=== PATIENT | male | born 1995 | race African-American/Black ===

== ENCOUNTER 2020-09-18 15:02 | Emergency (ER) | payer OTHER ==
--- OUTSIDE RECORDS SUMMARY | 2020-09-18 15:04 | XMS REPORT | Continuity of Care Document ---
:1995 Author Organization [facility] t Address [address] [place] [address] Care Team Providers Name Role Phone Evon MARIE S Attending Clinician Problems This patient has no known problems. Allergies, Adverse Reactions, Alerts This patient has no known allergies or adverse reactions. Medications This patient has no known medications. Procedures This patient has no known procedures. Encounters Start End Encounter Admission Attending Care Care Encounter Source Date/Time Date/Time Type Type Clinicians Facility Department ID 2019-04-14 2019-04-14 Emergency REKHA Barnard [id number] 01:36:12 03:19:00 Kyree Phan [id number] [place] [id number] [place] [id number] Results This patient has no known results.
--- NOTE | 2020-09-18 17:19 | ER ---
Nurse's Notes [facility] Name: Henry Collins Age: 25 yrs Sex: Male : 1995 Arrival Date: 09/18/2020 Time: 15:03 Bed 23 Private MD: Diagnosis: Unspecified sexually transmitted disease Presentation: 09/18 16:00 Chief complaint: Patient states: This morning woke up, penile discharge yellowish with ca1 odor. Reports burning with urination and suprapubic pain. Denies fever. Coronavirus screen: Client denies travel out of the [place] in the last 14 days. At this time, the client does not indicate any symptoms associated with coronavirus-19. Ebola Screen: Patient negative for fever greater than or equal to 101.5 degrees Fahrenheit, and additional compatible Ebola Virus Disease symptoms Patient denies exposure to infectious person. Patient denies travel to an Ebola-affected area in the 21 days before illness onset. No symptoms or risks identified at this time. Initial Sepsis Screen: Does the patient meet any 2 criteria? No. Patient's initial sepsis screen is negative. Does the patient have a suspected source of infection? No. Patient's initial sepsis screen is negative. Risk Assessment: Do you want to hurt yourself or someone else? Patient reports no desire to harm self or others. Onset of symptoms was September 18, 2020. 16:00 Method Of Arrival: Ambulatory ca1 16:00 Acuity: NICHOLE 4 ca1 Historical: - Allergies: 16:05 No Known Allergies; ca1 - Home Meds: 16:05 None [Active]; ca1 - PMHx: 16:05 Seizures; ca1 - PSHx: 16:05 None; ca1 - Immunization history:: Flu vaccine is not up to date. - Social history:: Smoking status: Patient/guardian denies using tobacco, the patient reports quitting approximately 11 years ago. Screenin:41 Abuse screen: Denies threats or abuse. Nutritional screening: No deficits noted. jd3 Tuberculosis screening: No symptoms or risk factors identified. Fall Risk Ambulatory Aid- None/Bed Rest/Nurse Assist (0 pts). Gait- Normal/Bed Rest/Wheelchair (0 pts) Mental Status- Oriented to own ability (0 pts). Total Kevin Fall Scale indicates No Risk (0-24 pts). Assessment: 17:40 General: Appears in no apparent distress. uncomfortable, Behavior is calm, cooperative, jd3 appropriate for age. Pain: Complains of pain in groin Quality of pain is described as burning. Neuro: Level of Consciousness is awake, alert, obeys commands, Oriented to person, place, time, situation. Cardiovascular: Capillary refill < 3 seconds Patient's skin is warm and dry. Respiratory: Airway is patent Respiratory effort is even, unlabored, Respiratory pattern is regular, symmetrical, Denies cough, shortness of breath. GI: No signs and/or symptoms were reported involving the gastrointestinal system. : Reports discharge, from penis that is yellow. EENT: No signs and/or symptoms were reported regarding the EENT system. Derm: Skin is healthy with good turgor, Skin is pink, warm \T\ dry. Musculoskeletal: Circulation, motion, and sensation intact. Range of motion: intact in all extremities. 18:02 Reassessment: Patient appears in no apparent distress at this time. Patient and/or jd3 family updated on plan of care and expected duration. Pain level reassessed. Patient is alert, oriented x 3, equal unlabored respirations, skin warm/dry/pink. Vital Signs: 16:00 BP 111 / 83; Pulse 83; Resp 16 S; Temp 99.1(TE); Pulse Ox 100% on R/A; Weight 81.65 kg ca1 (R); Height 6 ft. 1 in. (185.42 cm) (R); Pain 0/10; 18:02 BP 110 / 78; Pulse 84; Resp 15 S; Pulse Ox 100% on R/A; jd3 16:00 Body Mass Index 23.75 (81.65 kg, 185.42 cm) ca1 ED Course: 15:03 Patient arrived in ED. as 15:11 Hitesh Del Valle PA is PHCP. cp 15:11 Henry Slater MD is Attending Physician. cp 16:04 Triage completed. ca1 16:05 Arm band placed on right wrist. ca1 16:45 Juvenal Monson, ADDY is Primary Nurse. jd3 17:40 GC (GONORR/CHLAMYDIA) Probe Sent. jd3 17:41 Patient has correct armband on for positive identification. Bed in low position. Call jd3 light in reach. Side rails up X 1. Adult w/ patient. Pulse ox on. NIBP on. 17:41 No provider procedures requiring assistance completed. Patient did not have IV access jd3 during this emergency room visit. Administered Medications: 17:39 Drug: Rocephin (cefTRIAXone) 250 mg Route: IM; Site: right deltoid; jd3 18:03 Follow up: Response: No adverse reaction jd3 17:39 Drug: Zithromax 1 grams Route: PO; jd3 18:03 Follow up: Response: No adverse reaction jd3 Outcome: 17:19 Discharge ordered by . darron 18:02 Discharged to home ambulatory. jd3 18:02 Condition: stable 18:02 Discharge instructions given to patient, Instructed on discharge instructions, follow up and referral plans. Demonstrated understanding of instructions, follow-up care. 18:03 Patient left the ED. jd3 Signatures: Rukhsana Adams Corey, PA PA cp Davies, Jonathon, RN RN jSamantha Houston RN RN ca1
--- NOTE | 2020-09-18 17:19 | EDPHYS ---
Physician Documentation [facility] Name: Henry Collins Age: 25 yrs Sex: Male : 1995 Arrival Date: 09/18/2020 Time: 15:03 Bed 23 Private MD: ED Physician Henry Slater HPI: 09/18 16:45 This 25 yrs old Black Male presents to ER via Ambulatory with complaints of STD cp Exposure. 16:45 The patient presents with urinary symptoms, dysuria, penile discharge. cp 16:45 Onset: The symptoms/episode began/occurred this morning. Associated signs and symptoms: cp Pertinent negatives: abdominal pain, fever, hematuria, nausea, vomiting, testicular pain. Patient reports having unprotected intercourse with new partner recently. Historical: - Allergies: 16:05 No Known Allergies; ca1 - Home Meds: 16:05 None [Active]; ca1 - PMHx: 16:05 Seizures; ca1 - PSHx: 16:05 None; ca1 - Immunization history:: Flu vaccine is not up to date. - Social history:: Smoking status: Patient/guardian denies using tobacco, the patient reports quitting approximately 11 years ago. ROS: 16:50 : Positive for burning with urination, penile discharge, Negative for testicular pain cp 16:50 Eyes: Negative for injury, pain, redness, and discharge. cp 16:50 Constitutional: Negative for fever. 16:50 Cardiovascular: Negative for chest pain. 16:50 Respiratory: Negative for cough, shortness of breath. 16:50 Abdomen/GI: Negative for abdominal pain, nausea, vomiting, and diarrhea. 16:50 Skin: Negative for rash. 16:50 All other systems are negative. Exam: 17:00 Constitutional: The patient appears in no acute distress, alert, awake, comfortable, cp non-toxic, well developed, well nourished. 17:00 Head/Face: Normocephalic, atraumatic. cp 17:00 Cardiovascular: Rate: normal. 17:00 Respiratory: the patient does not display signs of respiratory distress, Respirations: normal, no use of accessory muscles, labored breathing, is not present. 17:00 Abdomen/GI: Inspection: abdomen appears normal, Palpation: abdomen is soft and non-tender, in all quadrants, voluntary guarding, is not appreciated, involuntary guarding, is not appreciated. 17:00 Back: pain, is absent, ROM is normal. 17:00 : Male external genitalia: Circumcision noted. swelling: is not appreciated, tenderness, is not appreciated, Sexual behavior: the patient is sexually active, and reports multiple partners. 17:00 Skin: no rash present. on the pelvis. Vital Signs: 16:00 BP 111 / 83; Pulse 83; Resp 16 S; Temp 99.1(TE); Pulse Ox 100% on R/A; Weight 81.65 kg ca1 (R); Height 6 ft. 1 in. (185.42 cm) (R); Pain 0/10; 18:02 BP 110 / 78; Pulse 84; Resp 15 S; Pulse Ox 100% on R/A; jd3 16:00 Body Mass Index 23.75 (81.65 kg, 185.42 cm) ca1 MDM: 16:25 Patient medically screened. cp 17:15 Differential diagnosis: appendicitis, UTI, prostatitis, urethritis. cp 17:18 Data reviewed: vital signs, nurses notes, and as a result, I will discharge patient. cp 17:18 Counseling: I had a detailed discussion with the patient and/or guardian regarding: the cp historical points, exam findings, and any diagnostic results supporting the discharge/admit diagnosis, to return to the emergency department if symptoms worsen or persist or if there are any questions or concerns that arise at home. 09/18 16:38 Order name: GC (GONORR/CHLAMYDIA) Probe cp Administered Medications: 17:39 Drug: Rocephin (cefTRIAXone) 250 mg Route: IM; Site: right deltoid; jd3 18:03 Follow up: Response: No adverse reaction jd3 17:39 Drug: Zithromax 1 grams Route: PO; jd3 18:03 Follow up: Response: No adverse reaction jd3 Disposition: 09/19 13:11 Co-signature as Attending Physician, Henry Slater MD I agree with the assessment and kdr plan of care. Disposition: 09/18/20 17:19 Discharged to Home. Impression: Unspecified sexually transmitted disease. - Condition is Stable. - Discharge Instructions: Chlamydia, Male, Gonorrhea, Sexually Transmitted Disease. - Medication Reconciliation Form, Thank You Letter, Antibiotic Education, Prescription Opioid Use form. - Follow up: Private Physician; When: 2 - 3 days; Reason: Worsening of condition. - Problem is new. - Symptoms have improved. Signatures: Dispatcher [employer] EDMS Henry Slater MD MD kdr Page, Corey, PA PA cp Davies, Jonathon, RN RN jd3 AcSamantha brothers RN RN ca1 Corrections: (The following items were deleted from the chart) 09/18 18:03 17:19 09/18/2020 17:19 Discharged to Home. Impression: Unspecified sexually transmitted jd3 disease. Condition is Stable. Forms are Medication Reconciliation Form, Thank You Letter, Antibiotic Education, Prescription Opioid Use. Follow up: Private Physician; When: 2 - 3 days; Reason: Worsening of condition. Problem is new. Symptoms have improved. cp
[2020-09-18] MEDS ORDERED: AZITHROMYCIN 250 MG TAB ONE (17:40)
[2020-09-18] MEDS ORDERED: CEFTRIAXONE 1000 MG/VIAL ONE (17:41)
[2020-09-18 18:15] VITALS: TEMP 99.1; O2SAT 100
[2020-09-18 18:17] VITALS: BP 110/78
[2020-09-22 12:38] LABS: C.trachomatis RNA,TMA Not Detected (Not Detected)
== END 2020-09-18 18:03 | disposition home or self-care (01) ==
LOC: ER 15:02
DX: A64 Unspecified sexually transmitted disease (principal)
CPT/HCPCS: 87490; 87590; 96372; 99283

== ENCOUNTER 2021-03-22 18:52 | Emergency (ER) | payer OTHER ==
--- OUTSIDE RECORDS SUMMARY | 2021-03-22 18:54 | XMS REPORT | Continuity of Care Document ---
:1995 Author Organization [facility] t Address [address] [place] [address] Care Team Providers Name Role Phone Charbel MARIE Attending Clinician Doctor Unassigned, Name Attending Clinician Unavailable Evon MARIE, S Attending Clinician Problems This patient has no known problems. Allergies, Adverse Reactions, Alerts This patient has no known allergies or adverse reactions. Medications This patient has no known medications. Procedures This patient has no known procedures. Encounters Start End Encounter Admission Attending Care Care Encounter Source Date/Time Date/Time Type Type Clinicians Facility Department ID 2021-01-08 2021-01-08 [email or web address] [id number] 08:33:00 09:14:00 Eduardo Phan [id number] [place] [id number] [place] [id number] 2021-01-08 2021-01-08 Orders Doctor SLIM [id number] 00:00:00 00:00:00 Only UnassignedJAVIER [id number] [place] [facility] [id number] 2019-04-14 2019-04-14 Emergency Evon [facility] [id number] 01:36:12 03:19:00 Kyree Phan [id number] [place] [id number] [place] [address] [id number] Results This patient has no known results.
--- NOTE | 2021-03-22 22:06 | ER ---
Nurse's Notes [facility] Name: Henry Collins Age: 25 yrs Sex: Male : 1995 Arrival Date: 03/22/2021 Time: 19:09 Bed 26 Private MD: Diagnosis: Dental caries, unspecified Presentation: 03/22 19:18 Chief complaint: Patient states: Left upper and lower tooth pain for 1 day. No fever. ll1 Coronavirus screen: Client denies travel out of the [place] in the last 14 days. At this time, the client does not indicate any symptoms associated with coronavirus-19. Ebola Screen: Patient denies travel to an Ebola-affected area in the 21 days before illness onset. Initial Sepsis Screen: Does the patient meet any 2 criteria? No. Patient's initial sepsis screen is negative. Does the patient have a suspected source of infection? No. Patient's initial sepsis screen is negative. Risk Assessment: Do you want to hurt yourself or someone else? Patient reports no desire to harm self or others. Onset of symptoms was March 22, 2021. 19:18 Method Of Arrival: Ambulatory [facility] 19:18 Acuity: NICHOLE 4 ll1 Triage Assessment: 21:22 General: Denies fever, feeling ill, fatigue, chills. EENT: Reports tooth pain . zb Historical: - Allergies: 19:20 No Known Allergies; ll1 - PMHx: 19:20 Seizures; ll1 - PSHx: 19:20 None; ll1 - Immunization history:: Client reports receiving the 1st dose of the Covid vaccine, Flu vaccine is up to date. - Social history:: Smoking status: Patient reports the use of cigarette tobacco products, smokes one pack cigarettes per day. Screenin:47 Abuse screen: Denies threats or abuse. Denies injuries from another. Nutritional zb screening: No deficits noted. Tuberculosis screening: No symptoms or risk factors identified. Fall Risk None identified. Assessment: 21:21 General: Appears in no apparent distress. Behavior is calm. Pain: Complains of pain in zb lower left third molar and lower left second molar Pain currently is 5 out of 10 on a pain scale. Quality of pain is described as aching, Pain began 1 day ago. Neuro: Level of Consciousness is awake, alert. Cardiovascular: Patient's skin is warm and dry. EENT: Throat is clear. Derm: Skin is intact, is healthy with good turgor. Musculoskeletal: Range of motion: intact in all extremities. 22:18 Reassessment: Patient appears in no apparent distress at this time. Patient and/or zb family updated on plan of care and expected duration. Pain level reassessed. Patient is alert, oriented x 3, equal unlabored respirations, skin warm/dry/pink. Vital Signs: 19:18 BP 125 / 73; Pulse 57; Resp 17; Temp 97.6; Pulse Ox 100% ; Weight 77.11 kg; Height 6 ll1 ft. 1 in. (185.42 cm); Pain 7/10; 22:18 BP 130 / 80; Pulse 56; Resp 16; Pulse Ox 100% ; zb 19:18 Body Mass Index 22.43 (77.11 kg, 185.42 cm) ll1 ED Course: 19:09 Patient arrived in ED. ds1 19:20 Triage completed. ll1 19:20 Arm band placed on. 1 20:13 Kaden Steele PA is PHCP. anurag 20:13 Hernan Skinner MD is Attending Physician. len 20:27 Carina Juraez RN is Primary Nurse. zb 21:22 Patient has correct armband on for positive identification. Pulse ox on. NIBP on. Door zb closed. Noise minimized. 22:18 No provider procedures requiring assistance completed. Patient did not have IV access zb during this emergency room visit. Administered Medications: 22:18 Drug: Ketorolac 30 mg Route: IM; Site: right deltoid; zb Outcome: 22:06 Discharge ordered by . anurag 22:18 Discharged to home ambulatory. zb 22:18 Condition: stable 22:18 Discharge instructions given to patient, Instructed on discharge instructions, follow up and referral plans. medication usage, Demonstrated understanding of instructions, follow-up care, medications, Prescriptions given X 1. 22:28 Patient left the ED. zb Signatures: Kaden Steele PA PA jmm Sanford, Demi ds1 Stanley Reis RN RN 1 Carina Juarez RN RN zb
--- NOTE | 2021-03-22 22:07 | EDPHYS ---
Physician Documentation [facility] Name: Henry Collins Age: 25 yrs Sex: Male : 1995 Arrival Date: 03/22/2021 Time: 19:09 Bed 26 Private MD: ED Physician Hernan Skinner HPI: 03/22 22:02 This 25 yrs old Black Male presents to ER via Ambulatory with complaints of Toothache. jmm 22:02 The patient presents with pain. Onset: The symptoms/episode began/occurred gradually, 1 jmm day(s) ago. Modifying factors: The symptoms are alleviated by nothing, the symptoms are aggravated by nothing. Associated signs and symptoms: Pertinent positives: pain, Pertinent negatives: fever. This is a 25 year old male with a history of epilepsy that presents to the ED with complaints of dental pain. Patient states the pain radiates up his jaw to his left ear. Denies fever, vomiting. Patient has had similar episodes of pain in the past. . Historical: - Allergies: 19:20 No Known Allergies; ll1 - PMHx: 19:20 Seizures; ll1 - PSHx: 19:20 None; ll1 - Immunization history:: Client reports receiving the 1st dose of the Covid vaccine, Flu vaccine is up to date. - Social history:: Smoking status: Patient reports the use of cigarette tobacco products, smokes one pack cigarettes per day. ROS: 22:02 Constitutional: Negative for fever, chills, and weight loss. jmm 22:02 ENT: Positive for dental pain. 22:02 All other systems are negative. Exam: 22:02 Constitutional: This is a well developed, well nourished patient who is awake, alert, jmm and in no acute distress. Head/Face: atraumatic. Eyes: EOMI, no conjunctival erythema appreciated 22:02 Neck: Trachea midline, Supple Chest/axilla: Normal chest wall appearance and motion. Cardiovascular: Regular rate and rhythm. No edema appreciated Respiratory: Normal respirations, no respiratory distress appreciated Abdomen/GI: Non distended, soft Back: Normal ROM Skin: General appearance color normal MS/ Extremity: Moves all extremities, no obvious deformities appreciated, no edema noted to the lower extremities Neuro: Awake and alert, normal gait Psych: Behavior is normal, Mood is normal, Patient is cooperative and pleasant 22:02 ENT: Dental exam: dental caries, that is moderate, specifically in the lower left second molar (#18), lower left first molar (#19) and lower left second bicuspid (#20). Vital Signs: 19:18 BP 125 / 73; Pulse 57; Resp 17; Temp 97.6; Pulse Ox 100% ; Weight 77.11 kg; Height 6 ll1 ft. 1 in. (185.42 cm); Pain 7/10; 22:18 BP 130 / 80; Pulse 56; Resp 16; Pulse Ox 100% ; zb 19:18 Body Mass Index 22.43 (77.11 kg, 185.42 cm) ll1 MDM: 22:01 Patient medically screened. [facility] 22:04 Data reviewed: vital signs, nurses notes. Counseling: I had a detailed discussion with len the patient and/or guardian regarding: the historical points, exam findings, and any diagnostic results supporting the discharge/admit diagnosis, the need for outpatient follow up, to return to the emergency department if symptoms worsen or persist or if there are any questions or concerns that arise at home. ED course: Patient is alert and non toxic in appearance in the ED. I do not suspect ludwigs. Patient advised to follow up with pcp/dentist or otherwise given strict return precautions. patient understood and agrees with the plan of care. . Administered Medications: 22:18 Drug: Ketorolac 30 mg Route: IM; Site: right deltoid; zb Disposition: 23:06 Co-signature as Attending Physician, Hernan Skinner MD. fernanda Disposition Summary: 03/22/21 22:06 Discharge Ordered Location: Home [facility] Condition: Stable [facility] Diagnosis - Dental caries, unspecified [facility] Followup: [facility] - With: Private Physician - When: 2 - 3 days - Reason: Recheck today's complaints, Continuance of care, Re-evaluation by your physician Discharge Instructions: - Discharge Summary Sheet [facility] - Dental Caries, Adult [facility] Forms: - Medication Reconciliation Form [facility] - Thank You Letter [facility] - Antibiotic Education [facility] - Prescription Opioid Use [facility] Prescriptions: - Amoxicillin 875 mg Oral Tablet - take 1 tablet by ORAL route every 12 hours for 10 days; 20 tablet; Refills: 0, [facility] Product Selection Permitted Signatures: Hernan Skinner MD MD pkKaden Piña PA PA jmm Lewis, Lynsay, RN RN ll1 Carina Juarez, RN RN zb
[2021-03-22 22:34] VITALS: TEMP 97.6; O2SAT 100
[2021-03-22 22:36] VITALS: BP 130/80
[2021-03-22] MEDS ORDERED: KETOROLAC 30 MG/ML INJ ONE (22:36)
== END 2021-03-22 22:28 | disposition home or self-care (01) ==
LOC: ER 18:52
DX: K02.9 Dental caries, unspecified (principal); F17.210 Nicotine dependence, cigarettes, uncomplicated
CPT/HCPCS: 96372; 99283

== ENCOUNTER 2021-03-31 03:05 | Emergency (ER) | payer OTHER ==
--- OUTSIDE RECORDS SUMMARY | 2021-03-31 03:08 | XMS REPORT | Continuity of Care Document ---
:[address] [facility] t Address [address] [place] [address] Care Team Providers Name Role Phone Charbel MARIE Attending Clinician Doctor Unassigned, Name Attending Clinician Unavailable Evon MARIE S Attending Clinician Problems This patient has no known problems. Allergies, Adverse Reactions, Alerts This patient has no known allergies or adverse reactions. Medications This patient has no known medications. Procedures This patient has no known procedures. Encounters Start End Encounter Admission Attending Care Care Encounter Source Date/Time Date/Time Type Type Clinicians Facility Department ID 2021-01-08 2021-01-08 Emergency [place] [id number] 08:33:00 09:14:00 Eduardo Phan [id number] [place] [id number] [place] [id number] 2021-01-08 2021-01-08 Orders Doctor [place]S [id number] 00:00:00 00:00:00 Only UnassignedJAVIER [id number] [place]ish [place] [facility] [id number] 2019-04-14 2019-04-14 Emergency Evon [id number] 01:36:12 03:19:00 Kyree Phan [id number] [place] [id number] [place] [id number] Results This patient has no known results.
[2021-03-31] MEDS ORDERED: AMOX/K CLAV 875 MG TAB ONE (04:32)
[2021-03-31] MEDS ORDERED: IBUPROFEN 400 MG TAB ONE (04:32)
--- NOTE | 2021-03-31 17:53 | EDPHYS ---
Physician Documentation [facility] Name: Henry Collins Age: 25 yrs Sex: Male : 1995 Arrival Date: 03/31/2021 Time: 03:09 Bed 12 Private MD: ED Physician Hitesh Grijalva HPI: 03/31 03:54 This 25 yrs old Black Male presents to ER via Ambulatory with complaints of Toothache. [facility] 03:54 The patient presents with pain, swelling. The problem is located in the lower left jena third molar and lower left second molar. Onset: The symptoms/episode began/occurred 3 day(s) ago. Duration: The symptoms are continuous. Modifying factors: The symptoms are alleviated by prescription meds, the symptoms are aggravated by air, chewing. Associated signs and symptoms: The patient has no apparent associated signs or symptoms. Severity of symptoms: At their worst the symptoms were mild, moderate, in the emergency department the symptoms are unchanged. The patient has not experienced similar symptoms in the past. Historical: - Allergies: 03:22 No Known Allergies; em - PMHx: 03:22 Seizures; em - PSHx: 03:22 None; em - Immunization history:: Adult Immunizations up to date. - Social history:: Smoking status: Patient reports the use of cigarette tobacco products, smokes one-half pack cigarettes per day. ROS: 03:55 Constitutional: Negative for fever, chills, and weight loss, Eyes: Negative for injury, jena pain, redness, and discharge, ENT: Negative for injury, pain, and discharge, Neck: Negative for injury, pain, and swelling, Cardiovascular: Negative for chest pain, palpitations, and edema, Respiratory: Negative for shortness of breath, cough, wheezing, and pleuritic chest pain, Abdomen/GI: Negative for abdominal pain, nausea, vomiting, diarrhea, and constipation, Back: Negative for injury and pain, : Negative for injury, bleeding, discharge, and swelling, MS/Extremity: Negative for injury and deformity, Skin: Negative for injury, rash, and discoloration, Neuro: Negative for headache, weakness, numbness, tingling, and seizure, Psych: Negative for depression, anxiety, suicide ideation, homicidal ideation, and hallucinations, Allergy/Immunology: Negative for hives, rash, and allergies, Endocrine: Negative for neck swelling, polydipsia, polyuria, polyphagia, and marked weight changes, Hematologic/Lymphatic: Negative for swollen nodes, abnormal bleeding, and unusual bruising. Exam: 03:55 Constitutional: This is a well developed, well nourished patient who is awake, alert, jena and in no acute distress. Head/Face: Normocephalic, atraumatic. Eyes: Pupils equal round and reactive to light, extra-ocular motions intact. Lids and lashes normal. Conjunctiva and sclera are non-icteric and not injected. Cornea within normal limits. Periorbital areas with no swelling, redness, or edema. Neck: Trachea midline, no thyromegaly or masses palpated, and no cervical lymphadenopathy. Supple, full range of motion without nuchal rigidity, or vertebral point tenderness. No Meningismus. Chest/axilla: Normal chest wall appearance and motion. Nontender with no deformity. No lesions are appreciated. Cardiovascular: Regular rate and rhythm with a normal S1 and S2. No gallops, murmurs, or rubs. Normal PMI, no JVD. No pulse deficits. Respiratory: Lungs have equal breath sounds bilaterally, clear to auscultation and percussion. No rales, rhonchi or wheezes noted. No increased work of breathing, no retractions or nasal flaring. Abdomen/GI: Soft, non-tender, with normal bowel sounds. No distension or tympany. No guarding or rebound. No evidence of tenderness throughout. Back: No spinal tenderness. No costovertebral tenderness. Full range of motion. Male : Normal genitalia with no discharge or lesions. Skin: Warm, dry with normal turgor. Normal color with no rashes, no lesions, and no evidence of cellulitis. 03:55 ENT: Mouth: Gums: reddened, swollen, on the lower left third molar and lower left second molar, Tongue: is normal, abscess, is not appreciated, drooling, is not appreciated, Dental exam: dental caries, that is mild, specifically in the lower left third molar (#17) and lower left second molar (#18), gum swelling, that is mild, specifically in the lower left third molar (#17) and lower left second molar (#18), malocclusion, is not appreciated, missing teeth, not appreciated, Voice: is normal. Vital Signs: 03:21 BP 146 / 97; Pulse 67; Resp 18; Temp 98.5; Pulse Ox 99% on R/A; Weight 77.11 kg; Height em 6 ft. 1 in. (185.42 cm); Pain 8/10; 03:21 Body Mass Index 22.43 (77.11 kg, 185.42 cm) em MDM: 03:31 Patient medically screened. jena 03:58 Differential diagnosis: dental caries, gingivitis, dental abscess, pericoronitis. Data jena reviewed: vital signs, nurses notes. Data interpreted: pvc monitor: not applicable for this patient encounter. rate is 67 beats/min, rhythm is regular, Pulse oximetry: on room air is 99 %. Counseling: I had a detailed discussion with the patient and/or guardian regarding: the historical points, exam findings, and any diagnostic results supporting the discharge/admit diagnosis, the need for outpatient follow up, for definitive care, a dentist, an oral maxilofacial specialist. Administered Medications: 04:14 Drug: Motrin (ibuprofen) 600 mg Route: PO; em 04:16 Follow up: Response: Medication administered at discharge. em 04:14 Drug: Amoxicillin 500 mg Route: PO; em 04:16 Follow up: Response: Medication administered at discharge. em Disposition Summary: 03/31/21 04:00 Discharge Ordered Location: Home jena Problem: new jena Symptoms: have improved jena Condition: Stable jena Diagnosis - Dental caries, unspecified - pain jena Followup: jena - With: Private Physician - When: 1 - 2 days - Reason: Recheck today's complaints, Continuance of care, Re-evaluation by your physician Followup: jena - With: Marc Sorto DDS - When: 2 - 3 days - Reason: Recheck today's complaints, Continuance of care, Re-evaluation by your physician Discharge Instructions: - Discharge Summary Sheet jena - Dental Caries, Adult jena - Dental Pain jena - Dental Pain, Iodg[place]up-Etge jena - Diet and Dental Disease jena Forms: - Medication Reconciliation Form jena - Thank You Letter jena - Antibiotic Education jena - Prescription Opioid Use jena Prescriptions: - Amoxicillin 500 mg Oral Capsule - take 1 capsule by ORAL route every 8 hours for 10 days; 30 tablet; Refills: 0, jena Product Selection Permitted - Ibuprofen 600 mg Oral Tablet - take 1 tablet by ORAL route every 6 hours As needed take with food; 21 tablet; jena Refills: 0, Product Selection Permitted Signatures: Hitesh Grijalva MD MD cha Munoz, Edgar, RN RN em
--- NOTE | 2021-03-31 17:53 | ER ---
Nurse's Notes [facility] Name: Henry Collnis Age: 25 yrs Sex: Male : 1995 Arrival Date: 03/31/2021 Time: 03:09 Bed 12 Private MD: Diagnosis: Dental caries, unspecified-pain Presentation: 03/31 03:21 Chief complaint: Patient states: bottom left jaw pain for a week, denies fever. em Coronavirus screen: Client denies travel out of the [place] in the last 14 days. Ebola Screen: Patient negative for fever greater than or equal to 101.5 degrees Fahrenheit, and additional compatible Ebola Virus Disease symptoms Patient denies exposure to infectious person. Patient denies travel to an Ebola-affected area in the 21 days before illness onset. Patient positive for the following Ebola Virus Disease associated symptoms:. Initial Sepsis Screen: Does the patient meet any 2 criteria? No. Patient's initial sepsis screen is negative. Does the patient have a suspected source of infection? Yes:. Risk Assessment: Do you want to hurt yourself or someone else? Patient reports no desire to harm self or others. Onset of symptoms was March 31, 2021. 03:21 Method Of Arrival: Ambulatory em 03:21 Acuity: NICHOLE 5 em Historical: - Allergies: 03:22 No Known Allergies; em - PMHx: 03:22 Seizures; em - PSHx: 03:22 None; em - Immunization history:: Adult Immunizations up to date. - Social history:: Smoking status: Patient reports the use of cigarette tobacco products, smokes one-half pack cigarettes per day. Screenin:21 Abuse screen: Denies threats or abuse. Nutritional screening: No deficits noted. em Tuberculosis screening: No symptoms or risk factors identified. Fall Risk None identified. Assessment: 03:21 General: Appears in no apparent distress. uncomfortable, Behavior is calm, cooperative, em Denies fever. Pain: Complains of pain in left jaw Pain currently is 10 out of 10 on a pain scale. Neuro: Level of Consciousness is awake, alert, obeys commands, Oriented to person, place, time, situation. Cardiovascular: Capillary refill < 3 seconds Patient's skin is warm and dry. Respiratory: Airway is patent Respiratory effort is even, unlabored, Respiratory pattern is regular, symmetrical. GI: Abdomen is flat, Patient currently denies nausea, vomiting. EENT: Oral mucosa is moist. Dental caries noted in lower left second molar (#18) and lower left third molar (#17). Derm: Skin is intact, is healthy with good turgor, Skin is pink, warm \T\ dry. Musculoskeletal: Capillary refill < 3 seconds, Range of motion: intact in all extremities. Vital Signs: 03:21 BP 146 / 97; Pulse 67; Resp 18; Temp 98.5; Pulse Ox 99% on R/A; Weight 77.11 kg; Height em 6 ft. 1 in. (185.42 cm); Pain 8/10; 03:21 Body Mass Index 22.43 (77.11 kg, 185.42 cm) em ED Course: 03:09 Patient arrived in ED. es 03:22 Triage completed. em 03:22 Arm band placed on. em 03:31 Hitesh Grijalva MD is Attending Physician. [facility] 04:01 Marc Sorto DDS is Referral Physician. [facility] 04:05 Cali Jackson, RN is Primary Nurse. em 04:17 Patient has correct armband on for positive identification. em 04:17 No provider procedures requiring assistance completed. Patient did not have IV access em during this emergency room visit. Administered Medications: 04:14 Drug: Motrin (ibuprofen) 600 mg Route: PO; em 04:16 Follow up: Response: Medication administered at discharge. em 04:14 Drug: Amoxicillin 500 mg Route: PO; em 04:16 Follow up: Response: Medication administered at discharge. em Outcome: 04:00 Discharge ordered by . [facility] 04:17 Discharged to home ambulatory. em 04:17 Condition: stable 04:17 Discharge instructions given to patient, Instructed on discharge instructions, follow up and referral plans. medication usage, Demonstrated understanding of instructions, follow-up care, medications, Prescriptions given X 2. 04:19 Patient left the ED. em Signatures: Hitesh Grijalva MD MD cha Salyer, Edna es Munoz, Edgar, RN RN em
[2021-04-01 19:03] VITALS: BP 146/97; TEMP 98.5; O2SAT 99
== END 2021-03-31 04:19 | disposition home or self-care (01) ==
LOC: ER 03:05
DX: K02.9 Dental caries, unspecified (principal); F17.210 Nicotine dependence, cigarettes, uncomplicated

== ENCOUNTER 2021-08-20 20:49 | Emergency (ER) | payer OTHER ==
--- OUTSIDE RECORDS SUMMARY | 2021-08-20 20:52 | XMS REPORT | Continuity of Care Document ---
:1995 Author Organization [facility] t Address [address] [place] [address] Care Team Providers Name Role Phone Charbel MARIE Attending Clinician Doctor Unassigned, Name Attending Clinician Unavailable Evon MARIE S Attending Clinician Payers Payer Name Policy Type Policy Number Effective Date Expiration Date S ource Problems Condition Condition Condition Status Onset Resolution Last Treating Co mments Source Name Details Category Date Date Treatment Clinician Date No known No known Disease Unive rs active active ity of problems problems [facility] Allergies, Adverse Reactions, Alerts Allergy Allergy Status Severity Reaction(s) Onset Inactive Treating Comm ents Source Name Type Date Date Clinician NO KNOWN Drug Active Univers ALLERGIE Class ity of S [facility] Social History Social Habit Start Date Stop Date Quantity Comments Source Exposure to Not sure [facility] SARS-CoV-2 (event) Medica l Branch Sex Assigned At [birth year] [facility] 00:00:00 00:00:00 [facility] Smoking Status Start Date Stop Date Source Unknown if ever smoked [facility] Medications Ordered Filled Start Stop Current Ordering Indication Dosage Frequency Signature Comments Components Source Medication Medication Date Date Medication? Clinician (SIG) Name Name tetanus-dip 2020-2020- No .5mL 0.5 mL, Un anay htheria 5-06 05-06 Intramuscu ity o f toxoids 14:45: 14:08 lar, ONCE, [place] as (TENIVAC) 00 :00 1 dose, Medical 5-2 Lf Jane 01/08/21 Branch unit/0.5 mL at 0945, injection Routine 0.5 mL ciprofloxac Yes [id number] 500mg Take 1 Univers in HCl 500 5-06 tablet by ity of mg tablet 00:00: mouth 2 (two) Medical times Branch daily. naproxen Yes [id number] 550mg Take 1 U nivers sodium 550 8-10 tablet by ity of mg tablet 00:00: mouth 2 (two) Medical times Branch daily with meals. naproxen Yes [id number] 550mg Take 1 U nivers sodium 550 8-10 tablet by ity of mg tablet 00:00: mouth 2 (two) Medical times Branch daily with meals. naproxen Yes [id number] 550mg Take 1 U nivers sodium 550 8-10 tablet by ity of mg tablet 00:00: mouth 2 (two) Medical times Branch daily with meals. oseltamivir 2017-09 Yes 75mg Take 1 Univ ers (TAMIFLU) 2-15 capsule by ity of 75 mg 00:00: mouth 2 [place] capsule 00 (two) Medical times Branch daily. acetaminoph 2017-09 Yes 1{tbl} Take 1-2 Univers en-codeine 2-15 tablets by ity of 300-30 mg 00:00: mouth [place] tablet 00 every 4 Medical (four) Branch hours as needed for Pain (scale 4-6) (Cough). ondansetron 2017-09 Yes 4mg Take 1 Univ ers 4 mg 2-15 tablet by ity of disintegrat 00:00: mouth [place] ing tablet 00 every 4 Medica l (four) Branch hours as needed for Nausea and Vomiting (N/V). oseltamivir 2017-09 Yes 75mg Take 1 Univ ers (TAMIFLU) 2-15 capsule by ity of 75 mg 00:00: mouth 2 [place] capsule 00 (two) Medical times Branch daily. acetaminoph 2017-09 Yes 1{tbl} Take 1-2 Univers en-codeine 2-15 tablets by ity of 300-30 mg 00:00: mouth [place] tablet 00 every 4 Medical (four) Branch hours as needed for Pain (scale 4-6) (Cough). ondansetron 2017-09 Yes 4mg Take 1 Univ ers 4 mg 2-15 tablet by ity of disintegrat 00:00: mouth [place] ing tablet 00 every 4 Medica l (four) Branch hours as needed for Nausea and Vomiting (N/V). oseltamivir 2017-09 Yes 75mg Take 1 Univ ers (TAMIFLU) 2-15 capsule by ity of 75 mg 00:00: mouth 2 [place] capsule 00 (two) Medical times Branch daily. acetaminoph 2018- Yes 1{tbl} Take 1-2 Univers en-codeine 2-15 tablets by ity of 300-30 mg 00:00: mouth [place] tablet 00 every 4 Medical (four) Branch hours as needed for Pain (scale 4-6) (Cough). ondansetron 2017-09 Yes 4mg Take 1 Univ ers 4 mg 2-15 tablet by ity of disintegrat 00:00: mouth [place] ing tablet 00 every 4 Medica l (four) Branch hours as needed for Nausea and Vomiting (N/V). mupirocin 2017- Yes Apply to Uni vers (BACTROBAN) 6-05 area(s) 3 ity of 2 % 00:00: (three) [place] ointment 00 times Medical daily. Branch mupirocin 2018-0 Yes Apply to Uni vers (BACTROBAN) 6-05 area(s) 3 ity of 2 % 00:00: (three) [place] ointment 00 times Medical daily. Branch mupirocin 2018-0 Yes Apply to Uni vers (BACTROBAN) 6-05 area(s) 3 ity of 2 % 00:00: (three) [place] ointment 00 times Medical daily. Branch IBUPROFEN 2017-0 Yes 400mg Take 1 Unive rs 400 mg 9-21 tablet by ity of tablet 00:00: mouth [place] 00 every 6 Medical (six) Branch hours as needed for Pain (scale 1-3). IBUPROFEN 2017-0 Yes 400mg Take 1 Unive rs 400 mg 9-21 tablet by ity of tablet 00:00: mouth [place] 00 every 6 Medical (six) Branch hours as needed for Pain (scale 1-3). IBUPROFEN 2017-0 Yes 400mg Take 1 Unive rs 400 mg 9-21 tablet by ity of tablet 00:00: mouth [place] 00 every 6 Medical (six) Branch hours as needed for Pain (scale 1-3). traMADOL 50 2017-0 Yes 50mg Take 1 Univ ers mg tablet 8-04 tablet by ity o f 00:00: mouth [place] 00 every 6 Medical (six) Branch hours as needed (pain). traMADOL 50 2016-0 Yes 50mg Take 1 Univ ers mg tablet 8-04 tablet by ity o f 00:00: mouth [place] 00 every 6 Medical (six) Branch hours as needed (pain). traMADOL 50 2016-0 Yes 50mg Take 1 Univ ers mg tablet 8-04 tablet by ity o f 00:00: mouth [place] 00 every 6 Medical (six) Branch hours as needed (pain). traMADOL 2015-09 Yes 50mg Take 1 Univers (ULTRAM) 50 2-15 tablet by ity of mg tablet 00:00: mouth [place] 00 every 6 Medical (six) Branch hours as needed for Pain (scale 4-6). Fernando Morley PA-C / Kirit Ahmadi MD BRENDON# [id number] DPS# [id number] x Lic.# [id number] NPI# [id number] amoxicillin 2015-09 Yes 1{tbl} Take 1 Un anay -clavulanat 2-15 tablet by ity of e 00:00: mouth [place] (AUGMENTIN) 00 every 12 Medi gerard 875-125 mg (twelve) Branc h per tablet hours. traMADOL 2015-09 Yes 50mg Take 1 Univers (ULTRAM) 50 2-15 tablet by ity of mg tablet 00:00: mouth [place] 00 every 6 Medical (six) Branch hours as needed for Pain (scale 4-6). Fernando Morley PA-C / Kirit Ahmadi MD BRENDON# [id number] DPS# [id number] x Lic.# [id number] NPI# [id number] amoxicillin 2015-09 Yes 1{tbl} Take 1 Un anay -clavulanat 2-15 tablet by ity of e 00:00: mouth [place] (AUGMENTIN) 00 every 12 Medi gerard 875-125 mg (twelve) Branc h per tablet hours. traMADOL 2015-09 Yes 50mg Take 1 Univers (ULTRAM) 50 2-15 tablet by ity of mg tablet 00:00: mouth [place] 00 every 6 Medical (six) Branch hours as needed for Pain (scale 4-6). Fernando Morley PA-C / Kirit Ahmadi MD BRENDON# [id number] DPS# [id number] x Lic.# [id number] [facility]# [id number] amoxicillin 2015-09 Yes 1{tbl} Take 1 Un anay -clavulanat 2-15 tablet by ity of e 00:00: mouth [place] (AUGMENTIN) 00 every 12 Medi gerard 875-125 mg (twelve) Branc h per tablet hours. Immunizations Ordered Filled Immunization Date Status Comments Sourc e Immunization Name Name Td 2021-01-08 Completed University of 00:00:00 [facility] Td 2018-02-07 Completed University of 00:00:00 [facility] 2018-02-07 Completed University of 00:00:00 [facility] 2018-02-07 Completed University of 00:00:00 [facility] 2016-08-19 Completed University of 00:00:00 [facility] 2016-08-19 Completed University of 00:00:00 [facility] 2016-08-19 Completed University of 00:00:00 [facility] Vital Signs Vital Name Observation Time Observation Value Comments Source Systolic blood 2021-01-08 13:32:00 152 mm[Hg] Univer sity [facility] Diastolic blood 2021-01-08 13:32:00 66 mm[facility]Hg[facility] 2021-01-08 13:32:00 74 /min [facility] Body temperature 2021-01-08 13:32:00 36.56 Jennifer [facility] Respiratory rate 2021-01-08 13:32:00 18 /min [facility] Body weight 2021-01-08 13:32:00 73.483 kg [facility] BMI 2021-01-08 13:32:00 21.37 kg/m2 [facility] Oxygen saturation in 2021-01-08 13:32:00 100 /min [facility] Arterial blood by [facility] Pulse oximetry Branch Systolic blood 2021-01-08 13:32:00 152 mm[Hg] Univer sity of [facility] Diastolic blood 2021-01-08 13:32:00 66 mm[Hg] Unive rsity [facility] Heart rate 2021-01-08 13:32:00 74 /min [facility] Body temperature 2021-01-08 13:32:00 36.56 Jennifer [facility] Respiratory rate 2021-01-08 13:32:00 18 /min [facility] Body weight 2021-01-08 13:32:00 73.483 kg [facility] BMI 2021-01-08 13:32:00 21.37 kg/m2 [facility] Oxygen saturation in 2021-01-08 13:32:00 100 /min University of Arterial blood by [facility] Pulse oximetry Branch Systolic blood 2019-04-14 06:32:00 126 mm[Hg] Univer sity of [facility] Diastolic blood 2019-04-14 06:32:00 74 mm[Hg] Unive rsity [facility] Heart rate 2019-04-14 06:32:00 81 /min [facility] Body temperature 2019-04-14 06:32:00 36.61 Jennifer [facility] Respiratory rate 2019-04-14 06:32:00 16 /min [facility] Body height 2019-04-14 06:32:00 185.4 cm [facility] Body weight 2019-04-14 06:32:00 73.71 kg [facility] BMI 2019-04-14 06:32:00 21.44 kg/m2 [facility] Oxygen saturation in 2019-04-14 06:32:00 99 /min University of Arterial blood by [facility] Pulse oximetry Branch Systolic blood 2019-04-14 06:32:00 126 mm[Hg] Univer sity of [facility] [place] [facility] Diastolic blood 2019-04-14 06:32:00 74 mm[Hg] Unive rsity [facility] Heart rate 2019-04-14 06:32:00 81 /min [facility] [place] [facility] Body temperature 2019-04-14 06:32:00 36.61 Jennifer [facility] [place] [facility] Respiratory rate 2019-04-14 06:32:00 16 /min [facility] [place] [facility] Body height 2019-04-14 06:32:00 185.4 cm [facility] [place] [facility] Body weight 2019-04-14 06:32:00 73.71 kg [facility] [place] [facility] BMI 2019-04-14 06:32:00 21.44 kg/m2 [facility] [place] [facility] Oxygen saturation in 2019-04-14 06:32:00 99 /min University Arterial blood by [facility] Pulse oximetry Branch Procedures Procedure Date / Time Performed Performing Clinician Sourc e CONSENT/REFUSAL FOR 2021-01-08 13:20:17 Doctor Unassigned, No [facility] [place] DIAGNOSIS AND Name Medical Branch TREATMENT NOTICE OF PRIVACY 2019-04-14 06:27:20 Doctor Unassigned, No [facility] [place] PRACTICES Name Medical Branch CONSENT/REFUSAL FOR 2019-04-14 06:26:49 Doctor Unassigned, No [facility] [place] DIAGNOSIS AND Name Medical Branch TREATMENT Encounters Start End Encounter Admission Attending Care Care Encounter Source Date/Time Date/Time Type Type Clinicians Facility Department ID 2021-01-08 2021-01-08 Emergency [place], [facility] [id number] 08:33:00 09:14:00 Eduardo Phan [id number] [place] [id number] [place] [address] [id number] 2021-01-08 2021-01-08 [facility] [id number] Univers 08:33:00 09:14:00 Eduardo Phan [id number] i ty [facility] 4.2.7.[address] [place] [address] [id number] [facility] 084 Branch 2021-01-08 2021-01-[address] [facility] ERT [id number] Univers 08:23:00 08:23:00 ity of [facility] 2021-01-08 2021-01-08 Orders Doctor SMALLS [id number] 00:00:00 00:00:00 Only UnassJAVIER campos [id number] [place] [address] [id number] 2021-01-08 2021-01-08 Orders Doctor SMALLS [id number] Univers 00:00:00 00:00:00 Only Unassigned, JAVIER [id number] ity of [facility] 4.2.7.2.686 [place] [id number] [facility] 009 Branch 2019-04-14 2019-04-[address] [facility] [id number] 01:36:12 03:19:00 Kyree Phan [id number] [place] 4.2.7.2.686 [place] [id number] 2019-04-14 2019-04-[address] [facility] [id number] [facility] 01:36:12 03:19:00 Kyree Bhardwajton [id number] ity of [place] 4.2.7.2.[address] [facility] [phone] [facility] 084 Branch Results This patient has no known results.
[2021-08-20] MEDS ORDERED: KETOROLAC 30 MG/ML INJ ONE (21:56)
[2021-08-20] MEDS ORDERED: LIDOCAINE 4% PATCH ONE (21:59)
--- NOTE | 2021-08-20 22:20 | EDPHYS ---
Physician Documentation [facility] Name: Henry Collins Age: 26 yrs Sex: Male : 1995 Arrival Date: 08/20/2021 Time: 20:51 Bed 11 Private MD: ED Physician Gennaro Araujo HPI: 08/20 21:52 This 26 yrs old Black Male presents to ER via Ambulatory with complaints of Back Pain. cp 21:52 The patient presents with pain that is acute, with no known mechanism of injury. The cp symptoms are located in the low back. 21:52 Onset: The symptoms/episode began/occurred today, pain started while driving. cp 21:52 The pain radiates to the to bilateral thighs. Associated signs and symptoms: Pertinent cp negatives: abdominal pain, constipation, dysuria, fever, hematuria, incontinence, numbness, urinary retention, weakness. Patient denies bowel and/or bladder incontinence, denies saddle anesthesia, denies history of IV drug use. Historical: - Allergies: 21:08 No Known Allergies; vg1 - Home Meds: 21:08 None [Active]; vg1 - PMHx: 21:08 Seizures; vg1 - PSHx: 21:08 None; vg1 - Immunization history:: Client reports having NOT received the Covid vaccine. - Social history:: Smoking status: Reported history of juuling and/or vaping. ROS: 22:00 Back: Positive for pain at rest, pain with movement, of the low back area. cp Exam: 22:05 Constitutional: The patient appears in no acute distress, alert, awake, non-toxic, well cp developed, well nourished, uncomfortable. 22:05 Head/Face: Normocephalic, atraumatic. cp 22:05 Eyes: Periorbital structures: appear normal, Conjunctiva: normal, no exudate, no injection, Sclera: no appreciated abnormality, Lids and lashes: appear normal, bilaterally. 22:05 ENT: External ear(s): are unremarkable, Nose: is normal, Mouth: Lips: moist, Oral mucosa: moist, Posterior pharynx: Airway: no evidence of obstruction, patent. 22:05 Neck: ROM/movement: is normal, is supple, without pain, no range of motions limitations. 22:05 Chest/axilla: Inspection: normal. 22:05 Cardiovascular: Rate: tachycardic, Rhythm: regular. 22:05 Respiratory: the patient does not display signs of respiratory distress, Respirations: normal, no use of accessory muscles, no retractions, labored breathing, is not present, Breath sounds: are clear throughout, no decreased breath sounds. 22:05 Abdomen/GI: Inspection: abdomen appears normal, Bowel sounds: active, all quadrants, Palpation: abdomen is soft and non-tender, in all quadrants. 22:05 Back: pain, that is moderate, of the low back area, ROM is painful, with all movement, muscle spasm, is not present, Straight leg raises: of both lower extremities does not illicit pain. 22:05 Neuro: Orientation: to person, place \T\ time. Mentation: is normal, Motor: moves all fours, strength is normal, Sensation: is normal, Deep tendon reflexes are 2+ (normal) in the right patellar, right Achilles, left patellar and left Achilles. Vital Signs: 21:05 BP 117 / 66; Pulse 109; Resp 20; Temp 98.; Pulse Ox 100% ; Weight 77.11 kg; Height 6 vg1 ft. 1 in. (185.42 cm); Pain 8/10; 21:05 Body Mass Index 22.43 (77.11 kg, 185.42 cm) vg1 MDM: 21:25 Patient medically screened. cp 22:10 Differential diagnosis: Pyelonephritis ruptured disc, spinal injury, Ureterolithiasis cp sciatica, cauda equina, spinal stenosis. 22:20 Data reviewed: vital signs, nurses notes. cp 22:20 Counseling: I had a detailed discussion with the patient and/or guardian regarding: the cp historical points, exam findings, and any diagnostic results supporting the discharge/admit diagnosis, the need for outpatient follow up, for definitive care, a family practitioner, to return to the emergency department if symptoms worsen or persist or if there are any questions or concerns that arise at home. Response to treatment: the patient's symptoms have mildly improved after treatment, and as a result, I will discharge patient. ED course: VSS. Will discharge to home for continued monitoring. Administered Medications: 22:02 Drug: Ketorolac 60 mg Route: IM; Site: right ventrogluteal; jh5 22:02 Drug: Lidoderm Patch 5 % (700 mg/patch) 1 patches Route: Topical; Site: affected area; jh5 Disposition: 22:30 Chart complete. cp Disposition Summary: 08/20/21 22:20 Discharge Ordered Location: Home cp Problem: new cp Symptoms: have improved cp Condition: Stable cp Diagnosis - Low back pain cp Followup: cp - With: Private Physician - When: 2 - 3 days - Reason: Recheck today's complaints Discharge Instructions: - Discharge Summary Sheet cp - Acute Back Pain, Adult cp - Heat Therapy cp - Back Exercises cp Forms: - Medication Reconciliation Form cp - Thank You Letter cp - Antibiotic Education cp - Prescription Opioid Use cp Prescriptions: - Lidoderm 5 % Topical adhesive patch,medicated - apply 1 patch by TOPICAL route once daily; 1 box; Refills: 0, Product Selection cp Permitted - Cyclobenzaprine 10 mg Oral Tablet - take 1 tablet by ORAL route every 8 hours As needed no driving while taking cp medication; 20 tablet; Refills: 0, Product Selection Permitted - Diclofenac Sodium 75 mg Oral tablet,delayed release (DR/EC) - take 1 tablet by ORAL route 2 times per day; 20 tablet; Refills: 0, Product cp Selection Permitted Signatures: Hitesh Del Valle PA PA cp Garcia, Victoria, RN RN vg1 Susana Wallace RN RN jh5
--- NOTE | 2021-08-20 22:20 | ER ---
Nurse's Notes [facility] Name: Henry Collins Age: 26 yrs Sex: Male : 1995 Arrival Date: 08/20/2021 Time: 20:51 Bed 11 Private MD: Diagnosis: Low back pain Presentation: 08/20 21:05 Chief complaint: Patient states: lower back that began today and radiates to KANE thigh. vg1 Denies any recent falls or injuries. Coronavirus screen: Vaccine status: Patient reports being unvaccinated. Client denies travel out of the [place] in the last 14 days. Ebola Screen: Patient negative for fever greater than or equal to 101.5 degrees Fahrenheit, and additional compatible Ebola Virus Disease symptoms. Initial Sepsis Screen: Does the patient meet any 2 criteria? No. Patient's initial sepsis screen is negative. Does the patient have a suspected source of infection? No. Patient's initial sepsis screen is negative. Risk Assessment: Do you want to hurt yourself or someone else? Patient reports no desire to harm self or others. Onset of symptoms was August 20, 2021. 21:05 Method Of Arrival: Ambulatory vg1 21:05 Acuity: NICHOLE 4 vg1 Triage Assessment: 21:08 General: Appears in no apparent distress. uncomfortable, Behavior is cooperative. Pain: vg1 Complains of pain in back, right leg and left leg Pain currently is 8 out of 10 on a pain scale. Musculoskeletal: Circulation, motion, and sensation intact. Historical: - Allergies: 21:08 No Known Allergies; vg1 - Home Meds: 21:08 None [Active]; vg1 - PMHx: 21:08 Seizures; vg1 - PSHx: 21:08 None; vg1 - Immunization history:: Client reports having NOT received the Covid vaccine. - Social history:: Smoking status: Reported history of juuling and/or vaping. Screenin:21 Abuse screen: Denies threats or abuse. Denies injuries from another. Nutritional jh5 screening: No deficits noted. Tuberculosis screening: No symptoms or risk factors identified. Fall Risk None identified. Assessment: 21:28 General: Appears in no apparent distress. uncomfortable, Behavior is calm, cooperative, jh5 appropriate for age. Vital Signs: 21:05 BP 117 / 66; Pulse 109; Resp 20; Temp 98.; Pulse Ox 100% ; Weight 77.11 kg; Height 6 vg1 ft. 1 in. (185.42 cm); Pain 8/10; 21:05 Body Mass Index 22.43 (77.11 kg, 185.42 cm) 1 ED Course: 20:51 Patient arrived in ED. 5 21:08 Triage completed. vg1 21:08 Arm band placed on. 1 21:19 Hitesh Del Valle PA is PHCP. cp 21:19 Gennaro Araujo MD is Attending Physician. cp 21:21 Susana Wallace, RN is Primary Nurse. 5 21:21 Patient has correct armband on for positive identification. Bed in low position. Call [facility] light in reach. Side rails up X 1. Administered Medications: 22:02 Drug: Ketorolac 60 mg Route: IM; Site: right ventrogluteal; 5 22:02 Drug: Lidoderm Patch 5 % (700 mg/patch) 1 patches Route: Topical; Site: affected area; [facility] Outcome: 22:20 Discharge ordered by . cp 22:43 Patient left the ED. [facility] Signatures: Hitesh Del Valle PA PA cp Garcia, Victoria RN RN [facility] Susana Wallace, ADDY RN 5 Delphine Leiva 5
[2021-08-20 23:32] VITALS: BP 117/66; TEMP 98; O2SAT 100
== END 2021-08-20 22:43 | disposition home or self-care (01) ==
LOC: ER 20:49
DX: M54.50 Low back pain, unspecified (principal)
CPT/HCPCS: 96372; 99282

== ENCOUNTER 2022-07-12 19:43 | Emergency (ER) | payer OTHER ==
--- OUTSIDE RECORDS SUMMARY | 2022-07-12 19:46 | XMS REPORT | Continuity of Care Document ---
:1995 Author Organization [facility] t Address [address] [place] [address] Care Team Providers Name Role Phone Eduardo Barger MD Attending Clinician Doctor Unassigned, [place] Attending Clinician Unavailable Kyree Barnard MD Attending Clinician Payers Payer Name Policy Type Policy Number Effective Date Expiration Date S ource Problems Condition Condition Condition Status Onset Resolution Last Treating Co mments Source Name Details Category Date Date Treatment Clinician Date No known No known Disease Unive rs active active ity of problems problems [facility] Allergies, Adverse Reactions, Alerts Allergy Allergy Status Severity Reaction(s) Onset Inactive Treating Comm ents Source Name Type Date Date Clinician NO KNOWN Drug Active Univers ALLERGIE Class ity of S [facility] Social History Social Habit Start Date Stop Date Quantity Comments Source Exposure to Not sure [facility] SARS-CoV-2 (event) Medica l Branch Sex Assigned At [birth year] [facility] 00:00:00 00:00:00 [facility] Smoking Status Start Date Stop Date Source Unknown if ever smoked [facility] Medications Ordered Filled Start Stop Current Ordering Indication Dosage Frequency Signature Comments Components Source Medication Medication Date Date Medication? Clinician (SIG) Name Name tetanus-dip 2020-2020- No .5mL 0.5 mL, Un anay htheria 5-06 05-06 Intramuscu ity o f toxoids 14:45: 14:08 lar, ONCE, [place] as (TENIVAC) 00 :00 1 dose, Medical 5-2 u 01/08/21 Branch unit/0.5 mL at 0945, injection Routine 0.5 mL ciprofloxac 0 Yes [id number] 500mg Take 1 Univers in HCl 500 5-06 tablet by ity of mg tablet 00:00: mouth 2 (two) Medical times Branch daily. naproxen Yes [id number] 550mg Take 1 U nivers sodium 550 8-10 tablet by ity of mg tablet 00:00: mouth 2 (two) Medical times Branch daily with meals. naproxen Yes [id number] 550mg Take 1 U nivers sodium 550 8-10 tablet by ity of mg tablet 00:00: mouth 2 (two) Medical times Branch daily with meals. naproxen Yes [id number] 550mg Take 1 U nivers sodium 550 [...] needed for Nausea and Vomiting (N/V). mupirocin 2018-0 Yes Apply to [facility] ers (BACTROBAN) 6-05 area(s) 3 ity of 2 % 00:00: (three) [place] ointment 00 times Medical daily. Branch mupirocin 2018-0 Yes Apply to [facility] ers (BACTROBAN) 6-05 area(s) 3 ity of 2 % 00:00: (three) [place] ointment 00 times Medical daily. Branch mupirocin 2018-0 Yes Apply to [facility] ers (BACTROBAN) 6-05 area(s) 3 ity of 2 [...] Branch hours as needed (pain). traMADOL 50 Yes 50mg Take 1 Univ ers mg [...] Morley PA-C / Kirit Ahmadi MD BRENDON# [id number] DPS# [id number] x Lic.# [id number] NPI# [id number] amoxicillin 2015-09 Yes 1{tbl} Take 1 Un [...] Morley PA-C / Kirit Ahmadi MD BRENDON# [id number] DPS# [id number] x Lic.# [id number] NPI# [id number] amoxicillin 2015-09 Yes 1{tbl} Take 1 Un [...] Morley PA-C / Kirit Ahmadi MD BRENDON# [id number] DPS# [id number] x Lic.# [id number] NPI# [id number] amoxicillin 2015-09 Yes 1{tbl} Take 1 Un anay -clavulanat 2-15 tablet by ity of e 00:00: mouth [place] (AUGMENTIN) 00 every 12 Medi gerard 875-125 mg (twelve) Branc h per tablet hours. Immunizations Ordered Filled Immunization Date Status Comments Sour e Immunization Name Name Td 2021-01-08 Completed University of 00:00:00 [facility] Td 2018-02-07 Completed University of 00:00:00 [facility] 2018-02-07 Completed University of 00:00:00 [facility] 2018-02-07 Completed University of 00:00:00 [facility] 2016-08-19 Completed University of 00:00:00 [facility] Td 2016-08-19 Completed University of 00:00:00 [facility] 2016-08-19 Completed University of 00:00:00 [facility] Vital Signs Vital Name Observation Time Observation Value Comments Source Systolic blood 2021-01-08 13:32:00 152 mm[Hg] Univer [facility] Diastolic blood 2021-01-08 13:32:00 66 mm[Hg] Unive rsity [facility] Heart rate 2021-01-08 13:32:00 74 /min [facility] Body temperature 2021-01-08 13:32:00 36.56 Jennifer [facility] Respiratory rate 2021-01-08 13:32:00 18 /min [facility] Body weight 2021-01-08 13:32:00 73.483 kg [facility] BMI 2021-01-08 13:32:00 21.37 kg/m2 [facility] Oxygen saturation in 2021-01-08 13:32:00 100 /min [facility] Arterial blood by [facility] Pulse oximetry Branch Systolic blood 2021-01-08 13:32:00 152 mm[Hg] Univer sity of [facility] Diastolic blood 2021-01-08 13:32:00 66 mm[Hg] Unive rsity of [facility] Heart rate 2021-01-08 13:32:00 74 /min [facility] [place] [facility] Body temperature 2021-01-08 13:32:00 36.56 Jennifer [facility] [place] [facility] Respiratory rate 2021-01-08 13:32:00 18 /min [facility] [place] [facility] Body weight 2021-01-08 13:32:00 73.483 kg [facility] [place] [facility] BMI 2021-01-08 13:32:00 21.37 kg/m2 [facility] [place] [facility] Oxygen saturation in 2021-01-08 13:32:00 100 /min University of Arterial blood by [place] [employer] gerard Pulse oximetry Branch Systolic blood 2019-04-14 06:32:00 126 mm[Hg] Univer sity of [facility] [place] [facility] Diastolic blood 2019-04-14 06:32:00 74 mm[Hg] Unive rsity [facility] [place] [facility] Heart rate 2019-04-14 06:32:00 81 /min [facility] [place] [facility] Body temperature 2019-04-14 06:32:00 36.61 Jennifer [facility] [place] [facility] Respiratory rate 2019-04-14 06:32:00 16 /min [facility] [place] [facility] Body height 2019-04-14 06:32:00 185.4 cm [facility] [place] [facility] Body weight 2019-04-14 06:32:00 73.71 kg [facility] [place] [facility] BMI 2019-04-14 06:32:00 21.44 kg/m2 [facility] [place] [facility] Oxygen saturation in 2019-04-14 06:32:00 99 /min University of Arterial blood by [place] [employer] gerard Pulse oximetry Branch Systolic blood 2019-04-14 06:32:00 126 mm[Hg] Univer sity of [facility] [place] [facility] Diastolic blood 2019-04-14 06:32:00 74 mm[Hg] Unive rsity of [facility] [place] [facility] Heart rate 2019-04-14 06:32:00 81 /min [facility] [place] [facility] Body temperature 2019-04-14 06:32:00 36.61 Jennifer [facility] [place] [facility] Respiratory rate 2019-04-14 06:32:00 16 /min [facility] [place] [facility] Body height 2019-04-14 06:32:00 185.4 cm [facility] [place] [facility] Body weight 2019-04-14 06:32:00 73.71 kg [facility] [place] [facility] BMI 2019-04-14 06:32:00 21.44 kg/m2 Universi ty of [facility] Oxygen saturation in 2019-04-14 06:32:00 99 /min University Arterial blood by [facility] Pulse oximetry Branch Procedures Procedure Date / Time Performed Performing Clinician Sour e CONSENT/REFUSAL FOR 2021-01-08 13:20:17 Doctor Unassigned, No [facility] [place] DIAGNOSIS AND Name Medical Branch TREATMENT NOTICE OF PRIVACY 2019-04-14 06:27:20 Doctor Unassigned, No Univ [facility] [place] PRACTICES Name Medical Branch CONSENT/REFUSAL FOR 2019-04-14 06:26:49 Doctor Unassigned, No [facility] [place] DIAGNOSIS AND Name Medical Branch TREATMENT Encounters Start End Encounter Admission Attending Care Care Encounter Source Date/Time Date/Time Type Type Clinicians Facility Department ID 2021-01-08 2021-01-08 Emergency Charbel, [facility] [id number] 08:33:00 09:14:00 Eduardo Phan [id number] [place] [id number] [place] [id number] 2021-01-08 2021-01-08 [facility] [id number] [facility] 08:33:00 09:14:00 Eduardo Phan [id number] i ty of [place] [address] [place] [address] [id number] [facility] 084 Branch 2021-01-08 2021-01-08 Emergency X [facility] ERT [id number] Univers 08:23:00 08:23:00 ity of [facility] 2021-01-08 2021-01-08 Orders Doctor SMALLS [id number] 00:00:00 00:00:00 Only SonjassJAVIER campos [id number] [place] [address] [id number] 2021-01-08 2021-01-08 Orders Doctor SMALLS [id number] Univers 00:00:00 00:00:00 Only Unassigned, JAVIER [id number] ity of [place] [facility] [id number] [place] [id number] [facility] 009 Branch 2019-04-14 2019-04-14 [facility] [id number] 01:36:12 03:19:00 Kyree Phan [id number] [place] [id number] [place] [id number] 2019-04-14 2019-04-14 [facility] [id number] [facility] 01:36:12 03:19:00 Kyree Phan [id number] ity of [place] [id number] [facility] [id number] [place] [id number] Branch Results This patient has no known results.
[2022-07-12] MEDS ORDERED: IBUPROFEN 400 MG TAB ONE (20:24)
[2022-07-12 21:20] LABS: Urine Blood Negative (Negative); Urine Glucose Negative (Negative); Urine Protein Negative (Negative); Urine Specific Gravity 1.025 (1.005-1.030); Urine pH 7.5 (5.0-7.0)
[2022-07-12 21:31] LABS: Urine Mucus Slight /HPF (None Seen); Urine RBC <5 /HPF (None Seen)
--- NOTE | 2022-07-12 22:09 | RAD REPORT ---
EXAM DESCRIPTION: US - Scrotum Testicles - 07/12/2022 8:59 pm CLINICAL HISTORY: PAIN COMPARISON: No comparisons FINDINGS: Homogeneous testicular tissue seen with no intra testicular mass or focal abnormality. Dop pler evaluation shows normal, symmetric intratesticular blood flow pattern. Epididymis tissues are no rmal in appearance without hyperemia or mass. No hydrocele or other extratesticular abnormality. No s crotal wall thickening or edema. IMPRESSION: Unremarkable scrotal ultrasound.
--- NOTE | 2022-07-12 22:54 | ER ---
Nurse's Notes [facility] [place] Name: Henry Collins Age: 26 yrs Sex: Male : 1995 Arrival Date: 07/12/2022 Time: 19:49 Bed 18 Private MD: Diagnosis: Scrotal pain left side Presentation: 07/12 19:49 Chief complaint: EMS states: Pt called EMS for left lower back pain that radiates to jb4 left lower abdomen and to his testicles. Coronavirus screen: At this time, the client does not indicate any symptoms associated with coronavirus-19. Ebola Screen: No symptoms or risks identified at this time. Initial Sepsis Screen: Does the patient meet any 2 criteria? No. Patient's initial sepsis screen is negative. Does the patient have a suspected source of infection? No. Patient's initial sepsis screen is negative. Risk Assessment: Do you want to hurt yourself or someone else? Patient reports no desire to harm self or others. Onset of symptoms was July 12, 2022. Transition of care: patient was not received from another setting of care. 19:49 Method Of Arrival: EMS: [facility] 4 19:49 Acuity: NICHOLE 3 jb4 Triage Assessment: 23:08 General: Appears in no apparent distress. Behavior is calm, cooperative. Pain: kd3 Complains of pain in testicular pain. Neuro: Level of Consciousness is awake, alert, obeys commands, Oriented to person, place, time, situation. Respiratory: Airway is patent Trachea midline Respiratory effort is even, unlabored, Respiratory pattern is regular, symmetrical. Historical: - Allergies: 19:51 No Known Allergies; jb4 - PMHx: 19:51 Seizures; jb4 - PSHx: 19:51 None; jb4 - Immunization history:: Adult Immunizations up to date. - Social history:: Smoking status: . Screenin:07 Abuse screen: Denies threats or abuse. Denies injuries from another. Nutritional kd3 screening: No deficits noted. Tuberculosis screening: No symptoms or risk factors identified. Fall Risk None identified. Assessment: 23:09 General: Appears in no apparent distress. Behavior is calm, cooperative. Neuro: Level kd3 of Consciousness is awake, alert, obeys commands, Oriented to person, place, time, situation. Cardiovascular: Patient's skin is warm and dry. Respiratory: Airway is patent Trachea midline Respiratory effort is even, unlabored, Respiratory pattern is regular, symmetrical. Vital Signs: 19:49 BP 134 / 71; Pulse 59; Resp 16; Temp 98.3(O); Pulse Ox 100% on R/A; Weight 72.57 kg jb4 (R); Height 6 ft. 1 in. (185.42 cm) (R); Pain 5/10; 23:09 BP 108 / 72; Pulse 62; Resp 16; Pulse Ox 100% on R/A; kd3 19:49 Body Mass Index 21.11 (72.57 kg, 185.42 cm) jb4 ED Course: 19:49 Patient arrived in ED. jb4 19:50 Gennaro Araujo MD is Attending Physician. sp3 19:51 Triage completed. jb4 19:51 Arm band placed on right wrist. jb4 20:20 Bebe Vaughan, RN is Primary Nurse. kd3 21:01 US Scrotum Testicles In Process Unspecified. EDMS 21:21 UA MICROSCOPIC Sent. kd3 22:53 Armando Oscar MD is Referral Physician. sp3 23:07 Patient has correct armband on for positive identification. kd3 23:07 No provider procedures requiring assistance completed. Patient did not have IV access kd3 during this emergency room visit. Administered Medications: 20:27 Drug: Ibuprofen 800 mg Route: PO; kd3 23:10 Follow up: Response: No adverse reaction kd3 Medication: 23:09 VIS not applicable for this client. kd3 Outcome: 22:53 Discharge ordered by . sp3 23:08 Discharged to home ambulatory. kd3 23:08 Condition: stable 23:08 Discharge instructions given to patient, family, Instructed on discharge instructions, follow up and referral plans. Demonstrated understanding of instructions, follow-up care. 23:10 Patient left the ED. kd3 Signatures: Dispatcher [employer] EDMS Shiv Godinez RN RN jb4 Gennaro Araujo MD MD sp3 Bebe Vaughan, RN RN kd3
--- NOTE | 2022-07-12 22:54 | EDPHYS ---
Physician Documentation [facility] Name: Henry Collins Age: 26 yrs Sex: Male : 1995 Arrival Date: 07/12/2022 Time: 19:49 Bed 18 Private MD: ED Physician Gennaro Araujo HPI: 07/12 20:04 This 26 yrs old Black Male presents to ER via EMS with complaints of left testicular sp3 pain. 20:04 26-year-old male with a history of epilepsy not currently on any medications presents sp3 with 1 day history of left testicular pain. Pain is on the inferior aspect of his testicle and proceeds up into his right aspect and then some low back pain which is described as dull in nature. Denies any trauma, urinary frequency, urethral discharge, gross hematuria, dysuria, or any other urinary symptoms. Patient is sexually active with last intercourse approximately 10 days ago which was a casual partner unprotected. Denies, neck pain, chest pain, shortness of breath, abdominal pain, nausea, vomiting, diarrhea, rash, or any other aspects of ROS at this time.. Historical: - Allergies: 19:51 No Known Allergies; jb4 - PMHx: 19:51 Seizures; jb4 - PSHx: 19:51 None; jb4 - Immunization history:: Adult Immunizations up to date. - Social history:: Smoking status: . ROS: 20:06 Constitutional: Negative for fever, chills, and weight loss, Eyes: Negative for injury, sp3 pain, redness, and discharge, Neck: Negative for injury, pain, and swelling, Cardiovascular: Negative for chest pain, palpitations, and edema, Respiratory: Negative for shortness of breath, cough, wheezing, and pleuritic chest pain, Abdomen/GI: Negative for abdominal pain, nausea, vomiting, diarrhea, and constipation, Back: Negative for injury and pain, MS/Extremity: Negative for injury and deformity, Skin: Negative for injury, rash, and discoloration, Neuro: Negative for headache, weakness, numbness, tingling, and seizure. 20:06 All other systems are negative. Exam: 20:06 Constitutional: This is a well developed, well nourished patient who is awake, alert, sp3 and in no acute distress. Head/Face: Normocephalic, atraumatic. Neck: Trachea midline, no thyromegaly or masses palpated, and no cervical lymphadenopathy. Supple, full range of motion without nuchal rigidity, or vertebral point tenderness. No Meningismus. Chest/axilla: Normal chest wall appearance and motion. Nontender with no deformity. No lesions are appreciated. Cardiovascular: Regular rate and rhythm with a normal S1 and S2. No gallops, murmurs, or rubs. Normal PMI, no JVD. No pulse deficits. Respiratory: Lungs have equal breath sounds bilaterally, clear to auscultation and percussion. No rales, rhonchi or wheezes noted. No increased work of breathing, no retractions or nasal flaring. Abdomen/GI: Soft, non-tender, with normal bowel sounds. No distension or tympany. No guarding or rebound. No evidence of tenderness throughout. Back: No spinal tenderness. No costovertebral tenderness. Full range of motion. Skin: Warm, dry with normal turgor. Normal color with no rashes, no lesions, and no evidence of cellulitis. MS/ Extremity: Pulses equal, no cyanosis. Neurovascular intact. Full, normal range of motion. Neuro: Awake and alert, GCS 15, oriented to person, place, time, and situation. Cranial nerves II-XII grossly intact. Motor strength 5/5 in all extremities. Sensory grossly intact. Cerebellar exam normal. Normal gait. Psych: Awake, alert, with orientation to person, place and time. Behavior, mood, and affect are within normal limits. 20:06 : Right testicle has normal exam. Left testicle has pain on the inferior lateral aspect and mild pain on the epididymis. Penis is normal. No urethral discharge noted. No inguinal lymphadenopathy or hernia detected.. Vital Signs: 19:49 BP 134 / 71; Pulse 59; Resp 16; Temp 98.3(O); Pulse Ox 100% on R/A; Weight 72.57 kg jb4 (R); Height 6 ft. 1 in. (185.42 cm) (R); Pain 5/10; 23:09 BP 108 / 72; Pulse 62; Resp 16; Pulse Ox 100% on R/A; kd3 19:49 Body Mass Index 21.11 (72.57 kg, 185.42 cm) jb4 MDM: 19:52 Patient medically screened. sp3 20:07 Data reviewed: vital signs, nurses notes. ED course: 26-year-old male with left sp3 testicular pain. Differential diagnosis includes epididymitis, prostatitis, UTI most surface cutaneous abscess, STI, infected hair follicle clinically of ruled out testicular torsion, sepsis, kidney stone, pyelonephritis intra-abdominal pathology, any other critical findings at this time. Will obtain ultrasound of the testicles, urine analysis with GC/chlamydia, and give ibuprofen for pain control. The lack of urethral discharge, I am not highly suspicious for STI though we will test for that as well.. 22:52 ED course: Ultrasound is normal as is UA. Will discharge patient home at this time with sp3 general precautions with STI test pending. Patient does not recollect possibly injuring the left side with his cell phone while running after a pet. No signs of injury on ultrasound so this information does not change his disposition. . 07/12 19:52 Order name: UA MICROSCOPIC; Complete Time: 21:44 sp3 07/12 19:52 Order name: US Scrotum Testicles; Complete Time: 22:44 sp3 07/12 21:20 Order name: Urine Dipstick-Ancillary; Complete Time: 21:30 EDMS 07/12 19:52 Order name: Urine Dipstick-Ancillary (obtain specimen); Complete Time: 21:21 sp3 Administered Medications: 20:27 Drug: Ibuprofen 800 mg Route: PO; kd3 23:10 Follow up: Response: No adverse reaction kd3 Disposition Summary: 07/12/22 22:53 Discharge Ordered Location: Home sp3 Condition: Stable sp3 Diagnosis - Scrotal pain left side sp3 Followup: sp3 - With: Armando Oscar MD - When: Upon discharge from the Emergency Department - Reason: Recheck today's complaints Discharge Instructions: - Discharge Summary Sheet sp3 - Testicular Self-Exam, [id number] sp3 Forms: - Medication Reconciliation Form sp3 - Thank You Letter sp3 - Antibiotic Education sp3 - Prescription Opioid Use sp3 Signatures: Dispatcher [employer] EDMS Shiv Godinez, RN RN jb4 Gennaro Araujo MD MD sp3 Bebe Vaughan RN RN kd3 Corrections: (The following items were deleted from the chart) 20:13 20:00 GC (Florentin/Chl) Probe URINE ordered. EDMS EDMS 20:15 19:52 GC (Gonorr/Clamydia) Probe+R.MARIS.NURYSZ ordered. EDMS EDMS
[2022-07-13 00:24] VITALS: TEMP 98.3; O2SAT 100
[2022-07-13 00:25] VITALS: BP 108/72
== END 2022-07-12 23:10 | disposition home or self-care (01) ==
LOC: ER 19:43
DX: N50.82 Scrotal pain (principal)
CPT/HCPCS: 76870; 81003; 81015; 99284

== ENCOUNTER 2022-10-05 06:15 | Emergency (ER) | payer OTHER ==
--- OUTSIDE RECORDS SUMMARY | 2022-10-05 06:18 | XMS REPORT | Continuity of Care Document ---
:1995 Author Organization [facility] t Address [address] [place] [address] Care Team Providers Name Role Phone Eduardo Barger MD Attending Clinician Doctor Unassigned, [place] Attending Clinician Unavailable Kyree Barnard MD Attending Clinician Payers Payer Name Policy Type Policy Number Effective Date Expiration Date S ource Problems Condition Condition Condition Status Onset Resolution Last Treating Co mments Source Name Details Category Date Date Treatment Clinician Date No known No known Disease Unive rs active active ity of problems problems [facility] Allergies, Adverse Reactions, Alerts Allergy Allergy Status Severity Reaction(s) Onset Inactive Treating Comm ents Source Name Type Date Date Clinician NO KNOWN Drug Active Univers ALLERGIE Class ity of S [facility] Social History Social Habit Start Date Stop Date Quantity Comments Source Exposure to Not sure [facility] SARS-CoV-2 (event) Medica l Branch Sex Assigned At [birth year] [facility] 00:00:00 00:00:00 [facility] Smoking Status Start Date Stop Date Source Unknown if ever smoked [facility] Medications Ordered Filled Start Stop Current [...] injection Routine 0.5 mL ciprofloxac 0 Yes [id number] 500mg Take 1 Univers in HCl 500 5-06 tablet by ity of mg tablet 00:00: mouth 2 (two) Medical times Branch daily. naproxen Yes [id number] 550mg Take 1 U nivers sodium 550 8-10 tablet by ity of mg tablet 00:00: mouth 2 (two) Medical times Branch daily with meals. naproxen Yes [id number] 550mg Take 1 U nivers sodium 550 8-10 tablet by ity of mg tablet 00:00: mouth 2 (two) Medical times Branch daily with meals. naproxen Yes [id number] 550mg Take 1 U nivers sodium 550 [...] Vomiting (N/V). mupirocin 2018-0 Yes Apply to [facility] ers (BACTROBAN) 6-05 area(s) 3 ity of 2 % 00:00: (three) [place] ointment 00 times Medical daily. Branch mupirocin 2018-0 Yes Apply to [facility] ers (BACTROBAN) 6-05 area(s) 3 ity of 2 % 00:00: (three) [place] ointment 00 times Medical daily. Branch mupirocin 2018-0 Yes Apply to [facility] ers (BACTROBAN) 6-05 area(s) 3 ity of [...] needed for Pain (scale 1-3). traMADOL 50 2016- Yes 50mg Take 1 Univ ers mg tablet 8-04 tablet by ity o f 00:00: mouth [place] 00 every 6 Medical (six) Branch hours as needed (pain). traMADOL 50 2017-0 Yes 50mg Take 1 [...] Morley PA-C / Kirit Ahmadi MD BRENDON# [id number] DPS# [id number] x Lic.# [id number] NPI# [id number] amoxicillin 2015-09 Yes 1{tbl} Take 1 Un [...] Morley PA-C / Kirit Ahmadi MD BRENDON# [id number] DPS# [id number] x Lic.# [id number] NPI# [id number] amoxicillin 2015-09 Yes 1{tbl} Take 1 Un [...] Morley PA-C / Kirit Ahmadi MD BRENDON# [id number] [facility]# [id number] x [facility].# [id number] NPI# [id number] amoxicillin 2015-09 Yes 1{tbl} Take 1 Un anay -clavulanat 2-15 tablet by ity of e 00:00: mouth [place] (AUGMENTIN) 00 every 12 Medi gerard 875-125 mg (twelve) Branc h per tablet hours. Immunizations Ordered Filled Immunization Date Status Comments Sour e Immunization Name Name Td 2021-01-08 Completed University of 00:00:00 [facility] Td 2018-02-07 Completed University of 00:00:00 [facility] Td 2018-02-07 Completed University of 00:00:00 [facility] 2018-02-07 Completed University of 00:00:00 [facility] Td 2016-08-19 Completed University of 00:00:00 [facility] Td 2016-08-19 Completed University of 00:00:00 [facility] 2016-08-19 Completed University of 00:00:00 [facility] Vital Signs Vital Name Observation Time Observation Value Comments Source Systolic blood 2021-01-08 13:32:00 152 mm[Hg] Univer sity of [facility] Diastolic blood 2021-01-08 13:32:00 66 mm[Hg] Unive rsity [facility] [place] [place] Heart rate 2021-01-08 13:32:00 74 /min [facility] Body temperature 2021-01-08 13:32:00 36.56 Jennifer [facility] Respiratory rate 2021-01-08 13:32:00 18 /min [facility] Body weight 2021-01-08 13:32:00 73.483 kg [facility] BMI 2021-01-08 13:32:00 21.37 kg/m2 [facility] Oxygen saturation in 2021-01-08 13:32:00 100 /min [facility] Arterial blood by [facility] Pulse oximetry Branch Systolic blood 2021-01-08 13:32:00 152 mm[Hg] Univer sity of [facility] Diastolic blood 2021-01-08 13:32:00 66 mm[Hg] Unive rsity [facility] [place] [place] Heart rate 2021-01-08 13:32:00 74 /min [facility] [place] [facility] Body temperature 2021-01-08 13:32:00 36.56 Jennifer [facility] [place] [facility] Respiratory rate 2021-01-08 13:32:00 18 /min [facility] [place] [facility] Body weight 2021-01-08 13:32:00 73.483 kg [facility] [place] [facility] BMI 2021-01-08 13:32:00 21.37 kg/m2 [facility] [place] [facility] Oxygen saturation in 2021-01-08 13:32:00 100 /min University of Arterial blood by [place] [facility] Pulse oximetry Branch Systolic blood 2019-04-14 06:32:00 126 mm[Hg] Univer sity of pressure [place] [facility] Diastolic blood 2019-04-14 06:32:00 74 mm[Hg] Unive rsity of pressure [place] [facility] Heart rate 2019-04-14 06:32:00 81 /min [facility] [place] [facility] Body temperature 2019-04-14 06:32:00 36.61 Jennifer [facility] [place] [facility] Respiratory rate 2019-04-14 06:32:00 16 /min [facility] [place] [facility] Body height 2019-04-14 06:32:00 185.4 cm [facility] [place] [facility] Body weight 2019-04-14 06:32:00 73.71 kg [facility] [place] [facility] BMI 2019-04-14 06:32:00 21.44 kg/m2 [facility] [place] [facility] Oxygen saturation in 2019-04-14 06:32:00 99 /min University of Arterial blood by [place] [facility] gerard Pulse oximetry Branch Systolic blood 2019-04-14 [...] weight 2019-04-14 06:32:00 73.71 kg Universi ty [facility] BMI 2019-04-14 06:32:00 21.44 [facility] 2019-04-14 06:32:00 99 /min University of Arterial blood by [facility] Pulse oximetry Branch Procedures Procedure Date / Time Performed Performing Clinician Sour e CONSENT/REFUSAL FOR 2021-01-08 13:20:17 Doctor Unassigned, No [facility] [place] DIAGNOSIS AND Name Medical Branch TREATMENT NOTICE OF PRIVACY 2019-04-14 06:27:20 Doctor Unassigned, No [facility] [place] PRACTICES Name Medical Branch CONSENT/REFUSAL FOR 2019-04-14 06:26:49 Doctor Unassigned, No [facility] [place] DIAGNOSIS AND Name Medical Branch TREATMENT Encounters Start End Encounter Admission Attending Care Care Encounter Source Date/Time Date/Time Type Type Clinicians Facility Department ID 2021-01-08 2021-01-08 [id number] 08:33:00 09:14:00 Eduardo Phan [id number] [place] [id number] [place] [id number] 2021-01-08 2021-01-08 [facility] [id number] Univers 08:33:00 09:14:00 Eduardo Phan [id number] i ty of [place] [id number] [facility] [id number] [facility] 084 Branch 2021-01-08 2021-01-08 Emergency X [facility] ERT [id number] Univers 08:23:00 08:23:00 ity of [facility] 2021-01-08 2021-01-08 Orders Doctor SMALLS [id number] 00:00:00 00:00:00 Only UnassignedJAVIER [id number] [place] [address] [id number] 2021-01-08 2021-01-08 Orders Doctor SMALLS [id number] Univers 00:00:00 00:00:00 Only Unassigned, JAVIER [id number] ity of [place] [facility] [id number] [place] [id number] [facility] 009 Branch 2019-04-14 2019-04-14 [facility] [id number] 01:36:12 03:19:00 Kyree Phan [id number] [place] [id number] [place] [id number] 2019-04-14 2019-04-14 [facility] [id number] [facility] 01:36:12 03:19:00 Kyree Phan [id number] ity of [place] [id number] [facility] [id number] [place] [id number] Branch Results This patient has no known results.
--- NOTE | 2022-10-05 07:16 | ER ---
Nurse's Notes [facility] Name: Henry Collins Age: 27 yrs Sex: Male : 1995 Arrival Date: 10/05/2022 Time: 06:16 Bed 15 Private MD: Diagnosis: Sprain of tibiofibular ligament of left ankle;Sprain of ankle Presentation: 10/05 06:16 Chief complaint: Patient states: I was trying to kill a spider and I fell and twisted aa9 my L ankle. Coronavirus screen: Vaccine status: Patient reports being unvaccinated. Ebola Screen: No symptoms or risks identified at this time. Initial Sepsis Screen: Does the patient meet any 2 criteria? No. Patient's initial sepsis screen is negative. Does the patient have a suspected source of infection? No. Patient's initial sepsis screen is negative. Risk Assessment: Do you want to hurt yourself or someone else? Patient reports no desire to harm self or others. Onset of symptoms was October 05, 2022. 06:16 Method Of Arrival: EMS: [facility] aa9 06:16 Acuity: NICHOLE 3 aa9 Triage Assessment: 06:18 General: Appears uncomfortable, slender, Behavior is calm, cooperative, appropriate for aa9 age. Pain: Complains of pain in left lateral ankle and left medial ankle Pain currently is 4 out of 10 on a pain scale. Noted to be resistant to movement. EENT: No deficits noted. Neuro: Level of Consciousness is awake, alert, obeys commands, Oriented to person, place, time, situation, Moves all extremities. Cardiovascular: Patient's skin is warm and dry. Respiratory: Airway is patent Respiratory effort is even, unlabored. GI: No signs and/or symptoms were reported involving the gastrointestinal system. : No signs and/or symptoms were reported regarding the genitourinary system. Derm: Skin is intact, is healthy with good turgor, Skin is pink, warm \T\ dry. Musculoskeletal: Swelling present in left lateral ankle and left medial ankle Reports pain in left lateral ankle and left medial ankle. Historical: - Allergies: 06:17 Gold [place]; aa9 - Home Meds: 06:17 None [Active]; aa9 - PMHx: 06:17 Seizures; aa9 - PSHx: 06:17 None; aa9 - Immunization history:: Client reports having NOT received the Covid vaccine. - Social history:: Smoking status: Patient reports the use of cigarette tobacco products, smokes one pack cigarettes per day. - Family history:: not pertinent. Screenin:32 [facility] ED Fall Risk Assessment (Adult) History of falling in the last 3 months, aa9 including since admission Yes- single mechanical fall (1 pt) Confusion or Disorientation No (0 pts) Intoxicated or Sedated No (0 pts) Impaired Gait No (0 pts) Mobility Assist Device Used No (0 pt) Altered Elimination No (0 pt) Score/Fall Risk Level 0 - 2 = Low Risk Educated pt \T\ family on fall prevention, incl call for assistance when getting out of bed, Assessed \T\ reinforced patient's understanding of fall precautions. Abuse screen: Denies threats or abuse. Denies injuries from another. Nutritional screening: No deficits noted. Tuberculosis screening: No symptoms or risk factors identified. Assessment: 06:36 General: Appears comfortable, Behavior is calm, cooperative, appropriate for age. aa9 Cardiovascular: Patient's skin is warm and dry. Respiratory: Airway is patent Respiratory effort is even, unlabored. 07:00 Reassessment: RECD REPORT FROM KYLE DALY. 27YO BM P/W LEFT ANKLE PAIN/EDEMA. bp 07:07 Reassessment: Patient appears in no apparent distress at this time. Patient and/or aa9 family updated on plan of care and expected duration. Pain level reassessed. Patient is alert, oriented x 3, equal unlabored respirations, skin warm/dry/pink. 08:14 Reassessment: PT DC HOME. bp Vital Signs: 06:16 BP 109 / 71; Pulse 69; Resp 19 S; Temp 97.9(O); Pulse Ox 100% on R/A; Weight 83.91 kg aa9 (R); Height 6 ft. 1 in. (185.42 cm) (R); Pain 4/10; 08:14 BP 98 / 52; Pulse 61; Resp 16; Pulse Ox 99% ; bp 06:16 Body Mass Index 24.41 (83.91 kg, 185.42 cm) aa9 ED Course: 06:16 Patient arrived in ED. aa9 06:17 Triage completed. aa9 06:18 Hitesh Grijalva MD is Attending Physician. jena 06:19 Arm band placed on. aa9 06:33 Patient has correct armband on for positive identification. Bed in low position. Call aa9 light in reach. Side rails up X2. Warm blanket given. 06:40 Ankle Left 3 View XRAY In Process Unspecified. EDMS 06:40 Foot Left 3 View XRAY In Process Unspecified. EDMS 07:14 Jeffrey Irizarry MD is Referral Physician. jena 07:23 Ace Daly, RN is Primary Nurse. bp 08:00 LEFT WALKING BOOT. bp 08:15 No provider procedures requiring assistance completed. Patient did not have IV access bp during this emergency room visit. Administered Medications: 07:15 Drug: Ketorolac 60 mg Route: IM; Site: left deltoid; bp 08:16 Follow up: Response: No adverse reaction bp 07:15 Drug: [place] (HYDROcodone-acetaminophen) 10 mg-325 mg 1 tabs Route: PO; bp 08:16 Follow up: Response: No adverse reaction bp Medication: 06:33 VIS not applicable for this client. aa9 Outcome: 07:16 Discharge ordered by . jena 08:15 Discharged to home ambulatory. bp 08:15 Condition: stable 08:15 Discharge instructions given to patient, Instructed on discharge instructions, follow up and referral plans. medication usage, Demonstrated understanding of instructions, follow-up care, medications, Prescriptions given X 2. 08:16 Patient left the ED. bp Signatures: Dispatcher [employer] Hitesh Delcid MD MD cha Peltier, Brian, RN RN bp Karen Eugene, RN RN aa9
--- NOTE | 2022-10-05 07:16 | EDPHYS ---
Physician Documentation [facility] Name: Henry Collins Age: 27 yrs Sex: Male : 1995 Arrival Date: 10/05/2022 Time: 06:16 Bed 15 Private MD: ED Physician Hitesh Grijalva HPI: 10/05 07:04 This 27 yrs old Black Male presents to ER via EMS with complaints of left ankle jena swelling, twisted. 07:04 The patient presents with decreased range of motion, pain, swelling, tenderness. The jena complaints affect the left ankle, left lateral ankle. Onset: The symptoms/episode began/occurred just prior to arrival. Context: The problem was sustained at home, resulted from the patient falling, The mechanism of injury involved inversion of the affected ankle. The patient can partially bear weight on the affected extremity. The patient is not able to ambulate. Associated signs and symptoms: The patient has no apparent associated signs or symptoms. Modifying factors: The symptoms are alleviated by elevation of extremity, ice packs, the symptoms are aggravated by weight bearing, heat, movement. Severity of symptoms: At their worst the symptoms were mild, moderate, in the emergency department the symptoms are unchanged. The patient has not experienced similar symptoms in the past. Historical: - Allergies: 06:17 Gold [place]; aa9 - Home Meds: 06:17 None [Active]; aa9 - PMHx: 06:17 Seizures; aa9 - PSHx: 06:17 None; aa9 - Immunization history:: Client reports having NOT received the Covid vaccine. - Social history:: Smoking status: Patient reports the use of cigarette tobacco products, smokes one pack cigarettes per day. - Family history:: not pertinent. ROS: 07:04 Constitutional: Negative for fever, chills, and weight loss, Eyes: Negative for injury, jena pain, redness, and discharge, ENT: Negative for injury, pain, and discharge, Neck: Negative for injury, pain, and swelling, Cardiovascular: Negative for chest pain, palpitations, and edema, Respiratory: Negative for shortness of breath, cough, wheezing, and pleuritic chest pain, Abdomen/GI: Negative for abdominal pain, nausea, vomiting, diarrhea, and constipation, Back: Negative for injury and pain, : Negative for injury, bleeding, discharge, and swelling, Skin: Negative for injury, rash, and discoloration, Neuro: Negative for headache, weakness, numbness, tingling, and seizure, Psych: Negative for depression, anxiety, suicide ideation, homicidal ideation, and hallucinations, Allergy/Immunology: Negative for hives, rash, and allergies, Endocrine: Negative for neck swelling, polydipsia, polyuria, polyphagia, and marked weight changes, Hematologic/Lymphatic: Negative for swollen nodes, abnormal bleeding, and unusual bruising. 07:04 MS/extremity: Positive for decreased range of motion, pain, swelling, tenderness, of the left lateral ankle. Exam: 07:04 Constitutional: This is a well developed, well nourished patient who is awake, alert, jena and in no acute distress. Head/Face: Normocephalic, atraumatic. Eyes: Pupils equal round and reactive to light, extra-ocular motions intact. Lids and lashes normal. Conjunctiva and sclera are non-icteric and not injected. Cornea within normal limits. Periorbital areas with no swelling, redness, or edema. ENT: Nares patent. No nasal discharge, no septal abnormalities noted. Tympanic membranes are normal and external auditory canals are clear. Oropharynx with no redness, swelling, or masses, exudates, or evidence of obstruction, uvula midline. Mucous membranes moist. Neck: Trachea midline, no thyromegaly or masses palpated, and no cervical lymphadenopathy. Supple, full range of motion without nuchal rigidity, or vertebral point tenderness. No Meningismus. Chest/axilla: Normal chest wall appearance and motion. Nontender with no deformity. No lesions are appreciated. Cardiovascular: Regular rate and rhythm with a normal S1 and S2. No gallops, murmurs, or rubs. Normal PMI, no JVD. No pulse deficits. Respiratory: Lungs have equal breath sounds bilaterally, clear to auscultation and percussion. No rales, rhonchi or wheezes noted. No increased work of breathing, no retractions or nasal flaring. Abdomen/GI: Soft, non-tender, with normal bowel sounds. No distension or tympany. No guarding or rebound. No evidence of tenderness throughout. Back: No spinal tenderness. No costovertebral tenderness. Full range of motion. Male : Normal genitalia with no discharge or lesions. Skin: Warm, dry with normal turgor. Normal color with no rashes, no lesions, and no evidence of cellulitis. Neuro: Awake and alert, GCS 15, oriented to person, place, time, and situation. Cranial nerves II-XII grossly intact. Motor strength 5/5 in all extremities. Sensory grossly intact. Cerebellar exam normal. Normal gait. Psych: Awake, alert, with orientation to person, place and time. Behavior, mood, and affect are within normal limits. 07:04 Musculoskeletal/extremity: Extremities: grossly normal except: noted in the left lateral ankle: decreased ROM, pain, swelling, tenderness. Vital Signs: 06:16 BP 109 / 71; Pulse 69; Resp 19 S; Temp 97.9(O); Pulse Ox 100% on R/A; Weight 83.91 kg aa9 (R); Height 6 ft. 1 in. (185.42 cm) (R); Pain 4/10; 08:14 BP 98 / 52; Pulse 61; Resp 16; Pulse Ox 99% ; bp 06:16 Body Mass Index 24.41 (83.91 kg, 185.42 cm) aa9 MDM: 06:18 Patient medically screened. [facility] 07:09 Differential diagnosis: fracture, sprain. Data reviewed: vital signs, nurses notes, [facility] radiologic studies, plain films. Consideration of Admission/Observation Escalation of care including admission/observation considered. I considered the following discharge prescriptions or medication management in the emergency department Medications were administered in the Emergency Department. See MAR. Independent interpretation of the following test(s) in the Emergency Department X-Ray: My interpretation is no fx, sts. Test considered but Not performed: Labs: no cbc , comp met. Care significantly affected by the following chronic conditions: seizures. 10/05 06:19 Order name: Ankle Left 3 View XRAY [facility] 10/05 06:19 Order name: Foot Left 3 View XRAY [facility] 10/05 06:19 Order name: Ice pack; Complete Time: 06:23 [facility] 10/05 07:02 Order name: Walking boot; Complete Time: 08:04 [facility] Administered Medications: 07:15 Drug: Ketorolac 60 mg Route: IM; Site: left deltoid; bp 08:16 Follow up: Response: No adverse reaction bp 07:15 Drug: Steens (HYDROcodone-acetaminophen) 10 mg-325 mg 1 tabs Route: PO; bp 08:16 Follow up: Response: No adverse reaction bp Disposition Summary: 10/05/22 07:16 Discharge Ordered Location: Home [facility] Problem: new jena Symptoms: have improved jena Condition: Stable jena Diagnosis - Sprain of tibiofibular ligament of left ankle jena - Sprain of ankle jena Followup: jena - With: Private Physician - When: 2 - 3 days - Reason: Recheck today's complaints, Re-evaluation by your physician Followup: jena - With: Jeffrey Irizarry MD - When: 2 - 3 days - Reason: Recheck today's complaints, Continuance of care, Re-evaluation by your physician Discharge Instructions: - Discharge Summary Sheet jena - Ankle Sprain jena - Fall Prevention in the Home, Adult jena - Ankle Sprain, [id number] jena - RICE Therapy for Routine Care of Injuries jena - RICE Therapy for Routine Care of Injuries, [id number] [facility] Forms: - Medication Reconciliation Form jena - Thank You Letter jena - Antibiotic Education jena - Prescription Opioid Use [facility] Prescriptions: - Tylenol-Codeine #3 300 mg-30 mg Oral - take 2 tablets by ORAL route every 6 hours; 18 tablet; Refills: 0, Product [facility] Selection Permitted - Ibuprofen 600 mg Oral Tablet - take 1 tablet by ORAL route every 6 hours As needed take with food; 20 tablet; [facility] Refills: 0, Product Selection Permitted Signatures: Dispatcher [employer] Hitesh Delcid MD MD cha Peltier, Brian, RN RN bp Karen Eugene RN RN aa9
[2022-10-05] MEDS ORDERED: HYDROCODONE/APAP 10/325 TAB ONE (07:58)
[2022-10-05] MEDS ORDERED: KETOROLAC 30 MG/ML INJ ONE (07:58)
[2022-10-05 08:23] VITALS: TEMP 97.9
[2022-10-05 08:24] VITALS: BP 98/52; O2SAT 99
--- NOTE | 2022-10-05 14:13 | RAD REPORT ---
EXAM DESCRIPTION: RAD - Ankle Left 3 View - 10/05/2022 6:38 am COMPARISON: None. CLINICAL HISTORY: [facility] MAIN PAIN FINDINGS: 3 views of the left foot and three views of the left ankle demonstrate no acute fracture o r dislocation. No significant joint effusion. Soft tissue swelling is present over the lateral malleo navdeep. IMPRESSION: Soft tissue swelling of the lateral malleolus. No acute osseous findings. Electronically signed by: Gage Morgan MD 10/05/2022 6:45 AM BUTCHER'S ASSISTANT Due to temporary technical issues with the PACS/Fluency reporting system, reports are being signed by the in house radiologists without review as a courtesy to insure prompt reporting. The interpreting radiologist is fully responsible for the content of the report.
--- NOTE | 2022-10-05 14:15 | RAD REPORT ---
EXAM DESCRIPTION: RAD - Foot Left 3 View - 10/05/2022 6:38 am COMPARISON: None. CLINICAL HISTORY: [facility] MAIN PAIN FINDINGS: 3 views of the left foot and three views of the left ankle demonstrate no acute fracture o r dislocation. No significant joint effusion. Soft tissue swelling is present over the lateral malleo navdeep. IMPRESSION: Soft tissue swelling of the lateral malleolus. No acute osseous findings. Electronically signed by: Gage Morgan MD 10/05/2022 6:45 AM FEATHER RENOVATOR Due to temporary technical issues with the PACS/Fluency reporting system, reports are being signed by the in house radiologists without review as a courtesy to insure prompt reporting. The interpreting radiologist is fully responsible for the content of the report.
== END 2022-10-05 08:16 | disposition home or self-care (01) ==
LOC: ER 06:15
DX: S93.432A Sprain of tibiofibular ligament of left ankle, initial encounter (principal)